=== PATIENT | male | born 1945 | race Caucasian/White ===

== ENCOUNTER 2018-12-21 10:59 | Inpatient (IN) ==
[2018-12-21] MEDS ORDERED: methylPREDNISolone SOD SUC 125 MG/2 ML VIAL IV STA (11:35)
[2018-12-21] MEDS ORDERED: LEVOFLOXACIN INJ 500 MG in PREMIX 1 EACH IV STA (11:35)
[2018-12-21] MEDS ORDERED: ALBUTEROL/IPRATROPIUM 3 ML NEB RESP TX STA (11:35)
[2018-12-21 11:57] LABS: Basophils % 0.2 % (0.0-0.8); Eosinophils # 0.1 10*3/uL (0.0-0.87); Eosinophils % 0.7 % (0.00-10.9); Hematocrit 39.7 VOL% (42.0-52.0); Immature Granulocytes % 0.3 %; Immature Granulocytes Absolute 0.04 #; Lymphocytes # 2.1 10*3/uL (1.4-4.0); Lymphocytes % 17.6 % (21.2-54.2); Mean Corpuscular HGB Conc 30.2 GM/DL (32-36); Mean Corpuscular Hemoglobin 25 PG (27-34); Mean Corpuscular Volume 81.7 FL (87-102); Monocytes # 0.9 10*3/uL (0.11-0.8); Monocytes % 7.3 % (1.7-12.7); Neutrophils # 8.9 10*3/uL (1.4-7.4); Neutrophils % 73.9 % (38.7-73.9); Platelet Count 378 T/CUMM (130-400); Red Blood Count 4.86 MC/CUMM (3.8-5.5); Red Cell Distribution Width 16.5 % (9.3-17.3)
[2018-12-21 12:29] LABS: Albumin 3.3 G/DL (3.4-5.0); Bilirubin,Total 0.4 MG/DL (0.2-1.0); Calcium 10.6 MG/DL (8.5-10.1); Potassium 3.7 MMOL/L (3.5-5.1); Total Protein 8.9 G/DL (6.4-8.3)
[2018-12-21] MEDS ORDERED: ONDANSETRON 4 MG/2 ML VIAL IV PRN (12:51)
[2018-12-21] MEDS: SODIUM CHLORIDE 0.9% 1,000 ML IV SCH (14:54)
[2018-12-21] MEDS ORDERED: ALBUTEROL 2.5 MG/3 ML NEB RESP TX PRN (15:47)
[2018-12-21] MEDS ORDERED: LEVOFLOXACIN INJ 250 MG in PREMIX 1 EACH IV ONE (16:00)
[2018-12-21] MEDS: GABAPENTIN 600 MG TABLET PO SCH ×2 (17:14→20:24)
[2018-12-21] MEDS: ALBUTEROL/IPRATROPIUM 3 ML NEB RESP TX SCH (19:23)
[2018-12-21] MEDS: NICOTINE 21 MG/24 HR PATCH TRANSDERM PRN (20:24)
[2018-12-21] MEDS: ASPIRIN EC 325 MG TABLET PO SCH (20:24)
[2018-12-21] MEDS: DOCUSATE SODIUM 100 MG CAPSULE PO SCH (20:24)
[2018-12-21] MEDS ORDERED: CELECOXIB 100 MG CAPSULE PO SCH (21:00)
[2018-12-21] MEDS: ACETAMINOPHEN 325 MG TABLET PO PRN (22:24)
[2018-12-22] MEDS: ALBUTEROL/IPRATROPIUM 3 ML NEB RESP TX SCH ×4 (00:54→19:12)
[2018-12-22] MEDS: SODIUM CHLORIDE 0.9% 1,000 ML IV SCH ×4 (08:15→16:22)
[2018-12-22] MEDS: methylPREDNISolone SOD SUC 40 MG/1 ML VIAL IV SCH ×2 (08:16→20:41)
[2018-12-22] MEDS: PANTOPRAZOLE 40 MG TABLET PO SCH (08:17)
[2018-12-22] MEDS: DOCUSATE SODIUM 100 MG CAPSULE PO SCH ×2 (08:17→20:40)
[2018-12-22] MEDS: SIMVASTATIN 20 MG TABLET PO SCH (08:17)
[2018-12-22] MEDS: GABAPENTIN 600 MG TABLET PO SCH ×4 (08:17→20:40)
[2018-12-22] MEDS: LEVOFLOXACIN 750 MG TABLET PO SCH (08:27)
[2018-12-22] MEDS: ACETAMINOPHEN 325 MG TABLET PO PRN ×3 (09:11→20:41)
[2018-12-22] MEDS: ASPIRIN EC 325 MG TABLET PO SCH (20:40)
[2018-12-22] MEDS: NICOTINE 21 MG/24 HR PATCH TRANSDERM PRN (20:41)
[2018-12-23] MEDS: SODIUM CHLORIDE 0.9% 1,000 ML IV SCH (01:00)
[2018-12-23] MEDS: ALBUTEROL/IPRATROPIUM 3 ML NEB RESP TX SCH ×2 (01:40→07:10)
[2018-12-23 05:45] LABS: Calcium 9.3 MG/DL (8.5-10.1); Osmolality,Calculated 279.4 MOS/KG (273-304); Potassium 3.9 MMOL/L (3.5-5.1)
[2018-12-23 07:29] VITALS: BP 116/78
[2018-12-23] MEDS: methylPREDNISolone SOD SUC 40 MG/1 ML VIAL IV SCH (09:32)
[2018-12-23] MEDS: DOCUSATE SODIUM 100 MG CAPSULE PO SCH (09:33)
[2018-12-23] MEDS: GABAPENTIN 600 MG TABLET PO SCH (09:33)
[2018-12-23] MEDS: SIMVASTATIN 20 MG TABLET PO SCH (09:33)
[2018-12-23] MEDS: PANTOPRAZOLE 40 MG TABLET PO SCH (09:33)
[2018-12-23] MEDS: LEVOFLOXACIN 750 MG TABLET PO SCH (09:33)
== END 2018-12-23 10:20 | disposition home or self-care (01) | DRG 190 ==
LOC: N.ED 10:59 → N.EDINP 12:49 → N.2E 14:28
PROVIDERS: ADMIT Family Medicine; ATTEND Family Medicine

== ENCOUNTER 2019-01-04 04:16 | Inpatient (IN) ==
[2019-01-04] MEDS ORDERED: methylPREDNISolone SOD SUC 125 MG/2 ML VIAL IV STA (04:44)
[2019-01-04] MEDS ORDERED: ALBUTEROL/IPRATROPIUM 3 ML NEB RESP TX STA (04:45)
[2019-01-04 04:54] LABS: Basophils % 0.2 % (0.0-0.8); Eosinophils # 0.1 10*3/uL (0.0-0.87); Eosinophils % 0.5 % (0.00-10.9); Hematocrit 41.5 VOL% (42.0-52.0); Hemoglobin 12.6 GM/DL (14.0-18.0); Immature Granulocytes % 0.7 %; Immature Granulocytes Absolute 0.14 #; Lymphocytes # 2.2 10*3/uL (1.4-4.0); Lymphocytes % 11.3 % (21.2-54.2); Mean Corpuscular HGB Conc 30.4 GM/DL (32-36); Mean Corpuscular Hemoglobin 25 PG (27-34); Mean Corpuscular Volume 81.5 FL (87-102); Mean Platelet Volume 9.9 FL (9.6-12.0); Monocytes # 1.7 10*3/uL (0.11-0.8); Monocytes % 8.5 % (1.7-12.7); Neutrophils # 15.7 10*3/uL (1.4-7.4); Neutrophils % 78.8 % (38.7-73.9); Platelet Count 345 T/CUMM (130-400); Red Blood Count 5.09 MC/CUMM (3.8-5.5); Red Cell Distribution Width 17.7 % (9.3-17.3); White Blood Count 19.9 T/CUMM (4-12)
[2019-01-04 05:04] LABS: Albumin 3.1 G/DL (3.4-5.0); Bilirubin,Total 0.4 MG/DL (0.2-1.0); Calcium 9.6 MG/DL (8.5-10.1); Potassium 3.8 MMOL/L (3.5-5.1); Total Protein 7.8 G/DL (6.4-8.3)
[2019-01-04] MEDS ORDERED: CEFEPIME 2,000 MG in SODIUM CHLORIDE 0.9% 100 ML IV STA (05:20)
[2019-01-04] MEDS ORDERED: VANCOMYCIN INJ 1,000 MG in SODIUM CHLORIDE 0.9% 250 ML IV STA (05:20)
[2019-01-04] MEDS ORDERED: ONDANSETRON 4 MG/2 ML VIAL IV PRN (05:45)
[2019-01-04] MEDS: DEXTROSE 5% NACL 0.9% 1,000 ML IV SCH ×3 (07:19→23:08)
[2019-01-04] MEDS: PANTOPRAZOLE 40 MG VIAL IV SCH (08:37)
[2019-01-04] MEDS: MONTELUKAST 10 MG TABLET PO SCH ×2 (09:41→21:33)
[2019-01-04] MEDS: methylPREDNISolone SOD SUC 40 MG/1 ML VIAL IV SCH ×2 (09:41→17:11)
[2019-01-04 09:57] LABS: % Iron Saturation 8.4 % (18-50)
[2019-01-04 10:38] LABS: Folate 14.2 NG/ML (5.4-24.0)
[2019-01-04 10:54] LABS: Apearance,Urine CLEAR (Clear); Bilirubin,Urine Negative (Negative); Blood, Urine Negative (Negative); Glucose,Urine (UA) Negative (Negative); Ketones,Urine Negative (Negative); Mucus,Urine Occasional /LPF (Occasional); Nitrite,Urine Negative (Negative); Protein,Urine Negative; RBC,Urine <1 /HPF (0-4); Urine Color Colorless (Yellow); Urine Specific Gravity 1.004 (1.001-1.035); Urine Urobilinogen < 2.0 EU/DL (0.2-1.0)
[2019-01-04] MEDS: CEFEPIME 2,000 MG in SODIUM CHLORIDE 0.9% 100 ML IV SCH ×2 (14:10→21:34)
[2019-01-04] MEDS: MORPHINE 4 MG/1 ML VIAL IV PRN ×2 (15:05→23:45)
[2019-01-05] MEDS: methylPREDNISolone SOD SUC 40 MG/1 ML VIAL IV SCH ×3 (03:36→16:51)
[2019-01-05 05:01] LABS: Basophils % 0.1 % (0.0-0.8); Hematocrit 37.6 VOL% (42.0-52.0); Hemoglobin 11.5 GM/DL (14.0-18.0); Immature Granulocytes % 0.5 %; Immature Granulocytes Absolute 0.07 #; Lymphocytes # 1.4 10*3/uL (1.4-4.0); Lymphocytes % 10.1 % (21.2-54.2); Mean Corpuscular HGB Conc 30.6 GM/DL (32-36); Mean Corpuscular Hemoglobin 25 PG (27-34); Mean Corpuscular Volume 81.2 FL (87-102); Mean Platelet Volume 10.2 FL (9.6-12.0); Monocytes # 0.9 10*3/uL (0.11-0.8); Monocytes % 6.2 % (1.7-12.7); Neutrophils # 11.6 10*3/uL (1.4-7.4); Neutrophils % 83.1 % (38.7-73.9); Platelet Count 331 T/CUMM (130-400); Red Blood Count 4.63 MC/CUMM (3.8-5.5); Red Cell Distribution Width 17.3 % (9.3-17.3)
[2019-01-05 05:15] LABS: Calcium 9.5 MG/DL (8.5-10.1); Osmolality,Calculated 270.1 MOS/KG (273-304); Potassium 4.3 MMOL/L (3.5-5.1)
[2019-01-05] MEDS: CEFEPIME 2,000 MG in SODIUM CHLORIDE 0.9% 100 ML IV SCH ×3 (06:20→22:00)
[2019-01-05] MEDS: DEXTROSE 5% NACL 0.9% 1,000 ML IV SCH ×3 (07:51→23:42)
[2019-01-05] MEDS: MONTELUKAST 10 MG TABLET PO SCH ×2 (09:19→21:51)
[2019-01-05] MEDS: PANTOPRAZOLE 40 MG VIAL IV SCH (09:20)
[2019-01-05] MEDS: MORPHINE 4 MG/1 ML VIAL IV PRN ×2 (11:14→14:28)
[2019-01-05] MEDS: FLUCONAZOLE INJ 100 MG in IV BAG 1 EACH IV SCH (12:22)
[2019-01-05] MEDS: GABAPENTIN 600 MG TABLET PO SCH ×2 (16:51→21:51)
[2019-01-05] MEDS: ASPIRIN EC 325 MG TABLET PO SCH (21:51)
[2019-01-06] MEDS: methylPREDNISolone SOD SUC 40 MG/1 ML VIAL IV SCH ×3 (02:09→17:34)
[2019-01-06 04:59] LABS: Basophils % 0.1 % (0.0-0.8); Eosinophils % 0.1 % (0.00-10.9); Hematocrit 36.3 VOL% (42.0-52.0); Hemoglobin 11.2 GM/DL (14.0-18.0); Immature Granulocytes % 0.8 %; Immature Granulocytes Absolute 0.11 #; Lymphocytes # 1.4 10*3/uL (1.4-4.0); Lymphocytes % 9.9 % (21.2-54.2); Mean Corpuscular HGB Conc 30.9 GM/DL (32-36); Mean Corpuscular Hemoglobin 25 PG (27-34); Mean Corpuscular Volume 80.7 FL (87-102); Mean Platelet Volume 10.3 FL (9.6-12.0); Monocytes # 0.9 10*3/uL (0.11-0.8); Monocytes % 6.2 % (1.7-12.7); Neutrophils # 11.5 10*3/uL (1.4-7.4); Neutrophils % 82.9 % (38.7-73.9); Platelet Count 325 T/CUMM (130-400); Red Cell Distribution Width 17.2 % (9.3-17.3); White Blood Count 13.8 T/CUMM (4-12)
[2019-01-06 05:14] LABS: Calcium 9.5 MG/DL (8.5-10.1); Osmolality,Calculated 270.1 MOS/KG (273-304); Potassium 4.1 MMOL/L (3.5-5.1)
[2019-01-06] MEDS: CEFEPIME 2,000 MG in SODIUM CHLORIDE 0.9% 100 ML IV SCH ×3 (06:40→22:06)
[2019-01-06] MEDS: MONTELUKAST 10 MG TABLET PO SCH ×2 (09:40→20:56)
[2019-01-06] MEDS: GABAPENTIN 600 MG TABLET PO SCH ×4 (09:40→20:56)
[2019-01-06] MEDS: PANTOPRAZOLE 40 MG VIAL IV SCH (09:40)
[2019-01-06] MEDS: DEXTROSE 5% NACL 0.9% 1,000 ML IV SCH (10:38)
[2019-01-06] MEDS: FLUCONAZOLE INJ 100 MG in IV BAG 1 EACH IV SCH (12:37)
[2019-01-06] MEDS: ASPIRIN EC 325 MG TABLET PO SCH (20:56)
[2019-01-07] MEDS: methylPREDNISolone SOD SUC 40 MG/1 ML VIAL IV SCH ×3 (01:30→17:25)
[2019-01-07] MEDS: CEFEPIME 2,000 MG in SODIUM CHLORIDE 0.9% 100 ML IV SCH ×3 (05:31→21:01)
[2019-01-07] MEDS: MORPHINE 4 MG/1 ML VIAL IV PRN (08:13)
[2019-01-07] MEDS: MONTELUKAST 10 MG TABLET PO SCH ×2 (09:11→20:38)
[2019-01-07] MEDS: PANTOPRAZOLE 40 MG VIAL IV SCH (09:11)
[2019-01-07] MEDS: GABAPENTIN 600 MG TABLET PO SCH ×4 (09:12→20:38)
[2019-01-07] MEDS ORDERED: PHENOL 1.4% THROAT SPRAY 177 ML BOTTLE PO PRN (11:20)
[2019-01-07] MEDS: NICOTINE 14 MG/24 HR PATCH TRANSDERM SCH (11:53)
[2019-01-07] MEDS: FLUCONAZOLE INJ 100 MG in IV BAG 1 EACH IV SCH (11:54)
[2019-01-07] MEDS ORDERED: FUROSEMIDE 20 MG/2 ML VIAL IV ONE (14:47)
[2019-01-07] MEDS: ASPIRIN EC 325 MG TABLET PO SCH (20:37)
[2019-01-08] MEDS: methylPREDNISolone SOD SUC 40 MG/1 ML VIAL IV SCH ×3 (00:49→17:35)
[2019-01-08] MEDS: CEFEPIME 2,000 MG in SODIUM CHLORIDE 0.9% 100 ML IV SCH ×3 (05:01→21:59)
[2019-01-08 05:52] LABS: Basophils % 0.1 % (0.0-0.8); Hematocrit 38.2 VOL% (42.0-52.0); Hemoglobin 11.9 GM/DL (14.0-18.0); Immature Granulocytes % 0.6 %; Immature Granulocytes Absolute 0.08 #; Lymphocytes # 0.8 10*3/uL (1.4-4.0); Lymphocytes % 6.2 % (21.2-54.2); Mean Corpuscular HGB Conc 31.2 GM/DL (32-36); Mean Corpuscular Hemoglobin 25 PG (27-34); Mean Corpuscular Volume 79.7 FL (87-102); Mean Platelet Volume 10.7 FL (9.6-12.0); Monocytes # 0.7 10*3/uL (0.11-0.8); Monocytes % 5.2 % (1.7-12.7); Neutrophils # 11.1 10*3/uL (1.4-7.4); Neutrophils % 87.9 % (38.7-73.9); Platelet Count 324 T/CUMM (130-400); Red Blood Count 4.79 MC/CUMM (3.8-5.5); Red Cell Distribution Width 17.2 % (9.3-17.3); White Blood Count 12.6 T/CUMM (4-12)
[2019-01-08 06:25] LABS: Calcium 9.1 MG/DL (8.5-10.1); Osmolality,Calculated 272.4 MOS/KG (273-304)
[2019-01-08] MEDS: MONTELUKAST 10 MG TABLET PO SCH ×2 (09:50→20:18)
[2019-01-08] MEDS: FUROSEMIDE 20 MG/2 ML VIAL IV SCH (09:51)
[2019-01-08] MEDS: GABAPENTIN 600 MG TABLET PO SCH ×4 (09:51→20:18)
[2019-01-08] MEDS: NICOTINE 14 MG/24 HR PATCH TRANSDERM SCH (09:53)
[2019-01-08] MEDS: PANTOPRAZOLE 40 MG VIAL IV SCH (10:28)
[2019-01-08] MEDS ORDERED: MIDAZOLAM 2 MG/2 ML VIAL ONE (13:01)
[2019-01-08] MEDS ORDERED: MIDAZOLAM 2 MG/2 ML VIAL IV ONE (13:05)
[2019-01-08] MEDS ORDERED: LIDOCAINE 1% 20 ML VIAL MISC INJ ONE (13:10)
[2019-01-08] MEDS: FLUCONAZOLE INJ 100 MG in IV BAG 1 EACH IV SCH (14:15)
[2019-01-08] MEDS: FERROUS SULFATE 325 MG TABLET PO SCH (15:25)
[2019-01-08] MEDS: METOPROLOL TARTRATE 25 MG TABLET PO SCH ×2 (15:25→20:18)
[2019-01-08] MEDS: MORPHINE 4 MG/1 ML VIAL IV PRN (19:05)
[2019-01-08] MEDS: ALBUTEROL/IPRATROPIUM 3 ML NEB RESP TX SCH (19:27)
[2019-01-08] MEDS: BUDESONIDE 0.25 MG/2 ML NEB RESP TX SCH (19:27)
[2019-01-08] MEDS: ASPIRIN EC 325 MG TABLET PO SCH (20:18)
[2019-01-08] MEDS: CELECOXIB 100 MG CAPSULE PO SCH (20:18)
[2019-01-09] MEDS: ALBUTEROL/IPRATROPIUM 3 ML NEB RESP TX SCH ×4 (00:28→19:39)
[2019-01-09] MEDS: methylPREDNISolone SOD SUC 40 MG/1 ML VIAL IV SCH ×3 (01:07→21:33)
[2019-01-09 05:39] LABS: Basophils % 0.1 % (0.0-0.8); Hematocrit 38.6 VOL% (42.0-52.0); Hemoglobin 11.9 GM/DL (14.0-18.0); Immature Granulocytes % 0.8 %; Immature Granulocytes Absolute 0.14 #; Lymphocytes # 0.4 10*3/uL (1.4-4.0); Lymphocytes % 2.3 % (21.2-54.2); Mean Corpuscular HGB Conc 30.8 GM/DL (32-36); Mean Corpuscular Hemoglobin 25 PG (27-34); Mean Corpuscular Volume 80.6 FL (87-102); Mean Platelet Volume 10.4 FL (9.6-12.0); Neutrophils # 15.7 10*3/uL (1.4-7.4); Neutrophils % 90.8 % (38.7-73.9); Platelet Count 301 T/CUMM (130-400); Red Blood Count 4.79 MC/CUMM (3.8-5.5); Red Cell Distribution Width 17.2 % (9.3-17.3); White Blood Count 17.3 T/CUMM (4-12)
[2019-01-09 05:59] LABS: Hypochromasia 1+; Lymphocytes 2 % (20-55); Platelet Estimate Adequate; Segmented Neutrophils 88 % (50-85); Total Cells Counted 100
[2019-01-09 06:06] LABS: Calcium 8.9 MG/DL (8.5-10.1); Osmolality,Calculated 273.4 MOS/KG (273-304); Potassium 4.1 MMOL/L (3.5-5.1)
[2019-01-09] MEDS: CEFEPIME 2,000 MG in SODIUM CHLORIDE 0.9% 100 ML IV SCH ×3 (06:16→22:04)
[2019-01-09] MEDS: BUDESONIDE 0.25 MG/2 ML NEB RESP TX SCH ×2 (07:53→19:39)
[2019-01-09] MEDS: GABAPENTIN 600 MG TABLET PO SCH ×4 (08:32→21:33)
[2019-01-09] MEDS: MONTELUKAST 10 MG TABLET PO SCH ×2 (08:33→21:33)
[2019-01-09] MEDS: METOPROLOL TARTRATE 25 MG TABLET PO SCH ×2 (08:33→21:33)
[2019-01-09] MEDS: NICOTINE 14 MG/24 HR PATCH TRANSDERM SCH (08:33)
[2019-01-09] MEDS: FERROUS SULFATE 325 MG TABLET PO SCH (08:33)
[2019-01-09] MEDS: PANTOPRAZOLE 40 MG VIAL IV SCH (08:33)
[2019-01-09] MEDS: CELECOXIB 100 MG CAPSULE PO SCH ×2 (08:35→21:33)
[2019-01-09] MEDS: FUROSEMIDE 20 MG/2 ML VIAL IV SCH (08:39)
[2019-01-09] MEDS: FLUCONAZOLE INJ 100 MG in IV BAG 1 EACH IV SCH (12:41)
[2019-01-09] MEDS: ASPIRIN EC 325 MG TABLET PO SCH (21:33)
[2019-01-10] MEDS: ALBUTEROL/IPRATROPIUM 3 ML NEB RESP TX SCH ×4 (00:29→20:25)
[2019-01-10 05:32] LABS: Basophils % 0.1 % (0.0-0.8); Hematocrit 39.5 VOL% (42.0-52.0); Hemoglobin 11.9 GM/DL (14.0-18.0); Immature Granulocytes Absolute 0.16 #; Lymphocytes # 0.5 10*3/uL (1.4-4.0); Mean Corpuscular HGB Conc 30.1 GM/DL (32-36); Mean Corpuscular Hemoglobin 25 PG (27-34); Mean Corpuscular Volume 82.3 FL (87-102); Mean Platelet Volume 10.2 FL (9.6-12.0); Monocytes # 0.9 10*3/uL (0.11-0.8); Monocytes % 5.5 % (1.7-12.7); Neutrophils # 14.6 10*3/uL (1.4-7.4); Neutrophils % 90.4 % (38.7-73.9); Platelet Count 285 T/CUMM (130-400); Red Cell Distribution Width 17.2 % (9.3-17.3); White Blood Count 16.2 T/CUMM (4-12)
[2019-01-10 05:47] LABS: Albumin 2.9 G/DL (3.4-5.0); Bilirubin,Total 1.3 MG/DL (0.2-1.0); Calcium 8.6 MG/DL (8.5-10.1); Osmolality,Calculated 272.4 MOS/KG (273-304); Potassium 3.9 MMOL/L (3.5-5.1)
[2019-01-10 06:03] LABS: Lymphocytes 3 % (20-55); Platelet Estimate Normal; Segmented Neutrophils 95 % (50-85); Total Cells Counted 100
[2019-01-10 06:04] LABS: Polychromasia Few
[2019-01-10] MEDS: CEFEPIME 2,000 MG in SODIUM CHLORIDE 0.9% 100 ML IV SCH ×3 (06:12→21:44)
[2019-01-10] MEDS: FERROUS SULFATE 325 MG TABLET PO SCH (08:30)
[2019-01-10] MEDS: GABAPENTIN 600 MG TABLET PO SCH ×4 (08:30→21:44)
[2019-01-10] MEDS: MONTELUKAST 10 MG TABLET PO SCH ×2 (08:31→21:44)
[2019-01-10] MEDS: methylPREDNISolone SOD SUC 40 MG/1 ML VIAL IV SCH ×2 (08:31→21:42)
[2019-01-10] MEDS: CELECOXIB 100 MG CAPSULE PO SCH ×2 (08:31→21:43)
[2019-01-10] MEDS: PANTOPRAZOLE 40 MG VIAL IV SCH (08:33)
[2019-01-10] MEDS: NICOTINE 14 MG/24 HR PATCH TRANSDERM SCH (08:34)
[2019-01-10] MEDS: FUROSEMIDE 20 MG/2 ML VIAL IV SCH (08:37)
[2019-01-10] MEDS: BUDESONIDE 0.25 MG/2 ML NEB RESP TX SCH ×2 (08:40→20:25)
[2019-01-10] MEDS: METOPROLOL TARTRATE 25 MG TABLET PO SCH ×2 (10:29→21:43)
[2019-01-10] MEDS: FLUCONAZOLE INJ 100 MG in IV BAG 1 EACH IV SCH (11:54)
[2019-01-10] MEDS: ASPIRIN EC 325 MG TABLET PO SCH (21:43)
[2019-01-11] MEDS: ALBUTEROL/IPRATROPIUM 3 ML NEB RESP TX SCH ×4 (00:29→20:08)
[2019-01-11] MEDS: CEFEPIME 2,000 MG in SODIUM CHLORIDE 0.9% 100 ML IV SCH ×3 (05:04→21:53)
[2019-01-11 05:29] LABS: Hematocrit 37.5 VOL% (42.0-52.0); Hemoglobin 11.4 GM/DL (14.0-18.0); Immature Granulocytes % 0.7 %; Immature Granulocytes Absolute 0.11 #; Lymphocytes # 0.5 10*3/uL (1.4-4.0); Lymphocytes % 3.1 % (21.2-54.2); Mean Corpuscular HGB Conc 30.4 GM/DL (32-36); Mean Corpuscular Hemoglobin 25 PG (27-34); Mean Platelet Volume 10.8 FL (9.6-12.0); Monocytes # 0.8 10*3/uL (0.11-0.8); Monocytes % 5.1 % (1.7-12.7); Neutrophils # 14.1 10*3/uL (1.4-7.4); Neutrophils % 91.1 % (38.7-73.9); Platelet Count 286 T/CUMM (130-400); Red Blood Count 4.63 MC/CUMM (3.8-5.5); Red Cell Distribution Width 17.5 % (9.3-17.3); White Blood Count 15.5 T/CUMM (4-12)
[2019-01-11 05:44] LABS: Albumin 2.9 G/DL (3.4-5.0); Calcium 8.5 MG/DL (8.5-10.1); Osmolality,Calculated 274.4 MOS/KG (273-304); Potassium 3.8 MMOL/L (3.5-5.1); Total Protein 6.6 G/DL (6.4-8.3)
[2019-01-11 05:53] LABS: Hypochromasia 1+; Lymphocytes 2 % (20-55); Platelet Estimate Adequate; Segmented Neutrophils 93 % (50-85); Total Cells Counted 100
[2019-01-11] MEDS: BUDESONIDE 0.25 MG/2 ML NEB RESP TX SCH ×2 (07:04→20:10)
[2019-01-11] MEDS: MONTELUKAST 10 MG TABLET PO SCH ×2 (09:11→21:46)
[2019-01-11] MEDS: FERROUS SULFATE 325 MG TABLET PO SCH (09:11)
[2019-01-11] MEDS: GABAPENTIN 600 MG TABLET PO SCH ×4 (09:11→21:46)
[2019-01-11] MEDS: METOPROLOL TARTRATE 25 MG TABLET PO SCH ×2 (09:11→21:48)
[2019-01-11] MEDS: FUROSEMIDE 20 MG/2 ML VIAL IV SCH (09:12)
[2019-01-11] MEDS: CELECOXIB 100 MG CAPSULE PO SCH ×2 (09:12→21:46)
[2019-01-11] MEDS: methylPREDNISolone SOD SUC 40 MG/1 ML VIAL IV SCH ×2 (09:13→21:49)
[2019-01-11] MEDS: NICOTINE 14 MG/24 HR PATCH TRANSDERM SCH (09:14)
[2019-01-11] MEDS: PANTOPRAZOLE 40 MG VIAL IV SCH (09:16)
[2019-01-11] MEDS: FLUCONAZOLE INJ 100 MG in IV BAG 1 EACH IV SCH (12:55)
[2019-01-11] MEDS: ASPIRIN EC 325 MG TABLET PO SCH (21:48)
[2019-01-12] MEDS: ALBUTEROL/IPRATROPIUM 3 ML NEB RESP TX SCH ×4 (00:18→19:45)
[2019-01-12] MEDS: MORPHINE 4 MG/1 ML VIAL IV PRN ×2 (01:16→20:53)
[2019-01-12] MEDS: BUDESONIDE 0.25 MG/2 ML NEB RESP TX SCH ×2 (08:05→19:45)
[2019-01-12] MEDS: MONTELUKAST 10 MG TABLET PO SCH ×2 (09:05→20:53)
[2019-01-12] MEDS: FERROUS SULFATE 325 MG TABLET PO SCH (09:05)
[2019-01-12] MEDS: CELECOXIB 100 MG CAPSULE PO SCH ×2 (09:05→20:53)
[2019-01-12] MEDS: GABAPENTIN 600 MG TABLET PO SCH ×4 (09:05→20:53)
[2019-01-12] MEDS: METOPROLOL TARTRATE 25 MG TABLET PO SCH ×2 (09:05→20:53)
[2019-01-12] MEDS: NICOTINE 14 MG/24 HR PATCH TRANSDERM SCH (09:06)
[2019-01-12] MEDS: PANTOPRAZOLE 40 MG VIAL IV SCH (10:13)
[2019-01-12] MEDS: methylPREDNISolone SOD SUC 40 MG/1 ML VIAL IV SCH ×2 (10:13→20:55)
[2019-01-12] MEDS ORDERED: CEFEPIME 2,000 MG in SYRINGE 1 EACH IV SCH (11:00)
[2019-01-12] MEDS: FLUCONAZOLE INJ 100 MG in IV BAG 1 EACH IV SCH (12:46)
[2019-01-12] MEDS: cefTAZidime 1,000 MG in SYRINGE 1 EACH IV SCH ×2 (15:17→22:32)
[2019-01-12] MEDS: ASPIRIN EC 325 MG TABLET PO SCH (20:53)
[2019-01-13] MEDS: ALBUTEROL/IPRATROPIUM 3 ML NEB RESP TX SCH ×4 (00:45→19:30)
[2019-01-13] MEDS: cefTAZidime 1,000 MG in SYRINGE 1 EACH IV SCH ×3 (06:15→23:16)
[2019-01-13] MEDS: BUDESONIDE 0.25 MG/2 ML NEB RESP TX SCH ×2 (07:01→19:32)
[2019-01-13 08:10] LABS: Basophils % 0.1 % (0.0-0.8); Eosinophils % 0.1 % (0.00-10.9); Hematocrit 39.7 VOL% (42.0-52.0); Hemoglobin 12.2 GM/DL (14.0-18.0); Immature Granulocytes % 0.6 %; Immature Granulocytes Absolute 0.11 #; Lymphocytes # 1.4 10*3/uL (1.4-4.0); Lymphocytes % 7.8 % (21.2-54.2); Mean Corpuscular HGB Conc 30.7 GM/DL (32-36); Mean Corpuscular Hemoglobin 25 PG (27-34); Mean Corpuscular Volume 80.9 FL (87-102); Monocytes # 1.4 10*3/uL (0.11-0.8); Monocytes % 7.9 % (1.7-12.7); Neutrophils # 14.7 10*3/uL (1.4-7.4); Neutrophils % 83.5 % (38.7-73.9); Platelet Count 302 T/CUMM (130-400); Red Blood Count 4.91 MC/CUMM (3.8-5.5); Red Cell Distribution Width 17.9 % (9.3-17.3); White Blood Count 17.6 T/CUMM (4-12)
[2019-01-13] MEDS: GABAPENTIN 600 MG TABLET PO SCH ×4 (08:31→20:55)
[2019-01-13] MEDS: MONTELUKAST 10 MG TABLET PO SCH ×2 (08:31→20:55)
[2019-01-13] MEDS: FERROUS SULFATE 325 MG TABLET PO SCH (08:32)
[2019-01-13] MEDS: methylPREDNISolone SOD SUC 40 MG/1 ML VIAL IV SCH ×2 (08:32→20:55)
[2019-01-13] MEDS: PANTOPRAZOLE 40 MG VIAL IV SCH (08:32)
[2019-01-13] MEDS: NICOTINE 14 MG/24 HR PATCH TRANSDERM SCH (08:32)
[2019-01-13] MEDS: METOPROLOL TARTRATE 25 MG TABLET PO SCH ×2 (08:32→20:56)
[2019-01-13] MEDS: CELECOXIB 100 MG CAPSULE PO SCH ×2 (08:34→20:56)
[2019-01-13 08:37] LABS: Calcium 9.2 MG/DL (8.5-10.1); Osmolality,Calculated 265.7 MOS/KG (273-304); Potassium 4.6 MMOL/L (3.5-5.1)
[2019-01-13] MEDS: LEVOFLOXACIN INJ 500 MG in PREMIX 1 EACH IV SCH (10:37)
[2019-01-13] MEDS: FLUCONAZOLE INJ 100 MG in IV BAG 1 EACH IV SCH (12:25)
[2019-01-13] MEDS: ASPIRIN EC 325 MG TABLET PO SCH (20:56)
[2019-01-14] MEDS: ALBUTEROL/IPRATROPIUM 3 ML NEB RESP TX SCH ×4 (00:50→19:09)
[2019-01-14 04:43] LABS: Basophils % 0.1 % (0.0-0.8); Hematocrit 38.2 VOL% (42.0-52.0); Hemoglobin 11.8 GM/DL (14.0-18.0); Immature Granulocytes % 0.9 %; Immature Granulocytes Absolute 0.16 #; Lymphocytes # 0.6 10*3/uL (1.4-4.0); Lymphocytes % 3.5 % (21.2-54.2); Mean Corpuscular HGB Conc 30.9 GM/DL (32-36); Mean Corpuscular Hemoglobin 25 PG (27-34); Mean Corpuscular Volume 80.4 FL (87-102); Mean Platelet Volume 10.8 FL (9.6-12.0); Monocytes # 0.9 10*3/uL (0.11-0.8); Monocytes % 4.7 % (1.7-12.7); Neutrophils # 16.6 10*3/uL (1.4-7.4); Neutrophils % 90.8 % (38.7-73.9); Platelet Count 287 T/CUMM (130-400); Red Blood Count 4.75 MC/CUMM (3.8-5.5); Red Cell Distribution Width 18.1 % (9.3-17.3); White Blood Count 18.3 T/CUMM (4-12)
[2019-01-14 05:05] LABS: Calcium 8.9 MG/DL (8.5-10.1); Osmolality,Calculated 274.4 MOS/KG (273-304); Potassium 4.7 MMOL/L (3.5-5.1)
[2019-01-14 05:30] LABS: Anisocytosis 1+; Band Neutrophils 2 % (0-10); Lymphocytes 3 % (20-55); Macrocytosis 1+; Ovalocytes 1+; Platelet Estimate Normal; Segmented Neutrophils 90 % (50-85); Target Cells 1+; Total Cells Counted 100
[2019-01-14] MEDS: cefTAZidime 1,000 MG in SYRINGE 1 EACH IV SCH ×3 (06:20→22:57)
[2019-01-14] MEDS: BUDESONIDE 0.25 MG/2 ML NEB RESP TX SCH ×2 (07:25→19:09)
[2019-01-14] MEDS: MONTELUKAST 10 MG TABLET PO SCH ×2 (10:06→20:26)
[2019-01-14] MEDS: GABAPENTIN 600 MG TABLET PO SCH ×4 (10:06→20:26)
[2019-01-14] MEDS: METOPROLOL TARTRATE 25 MG TABLET PO SCH ×2 (10:07→20:26)
[2019-01-14] MEDS: FERROUS SULFATE 325 MG TABLET PO SCH (10:07)
[2019-01-14] MEDS: PANTOPRAZOLE 40 MG VIAL IV SCH (10:08)
[2019-01-14] MEDS: methylPREDNISolone SOD SUC 40 MG/1 ML VIAL IV SCH ×2 (10:10→20:27)
[2019-01-14] MEDS: NICOTINE 14 MG/24 HR PATCH TRANSDERM SCH (10:12)
[2019-01-14] MEDS: LEVOFLOXACIN INJ 500 MG in PREMIX 1 EACH IV SCH (10:17)
[2019-01-14] MEDS: CELECOXIB 100 MG CAPSULE PO SCH ×2 (10:22→20:27)
[2019-01-14] MEDS: FLUCONAZOLE INJ 100 MG in IV BAG 1 EACH IV SCH (12:58)
[2019-01-14] MEDS: VANCOMYCIN INJ 1,000 MG in SODIUM CHLORIDE 0.9% 250 ML IV SCH (18:34)
[2019-01-14] MEDS: ASPIRIN EC 325 MG TABLET PO SCH (20:26)
[2019-01-15] MEDS: ALBUTEROL/IPRATROPIUM 3 ML NEB RESP TX SCH ×4 (00:45→19:45)
[2019-01-15] MEDS: VANCOMYCIN INJ 1,000 MG in SODIUM CHLORIDE 0.9% 250 ML IV SCH ×2 (04:46→18:18)
[2019-01-15 05:50] LABS: Basophils % 0.1 % (0.0-0.8); Hematocrit 38.2 VOL% (42.0-52.0); Hemoglobin 11.7 GM/DL (14.0-18.0); Immature Granulocytes % 1.2 %; Immature Granulocytes Absolute 0.23 #; Lymphocytes # 0.8 10*3/uL (1.4-4.0); Mean Corpuscular HGB Conc 30.6 GM/DL (32-36); Mean Corpuscular Hemoglobin 25 PG (27-34); Mean Corpuscular Volume 81.3 FL (87-102); Mean Platelet Volume 10.6 FL (9.6-12.0); Monocytes # 1.2 10*3/uL (0.11-0.8); Monocytes % 6.2 % (1.7-12.7); Neutrophils # 17.4 10*3/uL (1.4-7.4); Neutrophils % 88.5 % (38.7-73.9); Platelet Count 284 T/CUMM (130-400); White Blood Count 19.7 T/CUMM (4-12)
[2019-01-15 06:02] LABS: Calcium 8.4 MG/DL (8.5-10.1); Osmolality,Calculated 269.4 MOS/KG (273-304); Potassium 4.2 MMOL/L (3.5-5.1)
[2019-01-15 06:12] LABS: Band Neutrophils 1 % (0-10); Hypochromasia 1+; Lymphocytes 8 % (20-55); Microcytosis 1+; Platelet Estimate Normal; Segmented Neutrophils 87 % (50-85); Total Cells Counted 100
[2019-01-15] MEDS: cefTAZidime 1,000 MG in SYRINGE 1 EACH IV SCH ×3 (06:46→23:36)
[2019-01-15] MEDS: BUDESONIDE 0.25 MG/2 ML NEB RESP TX SCH ×2 (07:40→19:45)
[2019-01-15] MEDS: METOPROLOL TARTRATE 25 MG TABLET PO SCH ×2 (09:37→20:25)
[2019-01-15] MEDS: MONTELUKAST 10 MG TABLET PO SCH ×2 (09:38→20:24)
[2019-01-15] MEDS: GABAPENTIN 600 MG TABLET PO SCH ×4 (09:38→20:24)
[2019-01-15] MEDS: CELECOXIB 100 MG CAPSULE PO SCH ×2 (09:38→20:28)
[2019-01-15] MEDS: FERROUS SULFATE 325 MG TABLET PO SCH (09:39)
[2019-01-15] MEDS: PANTOPRAZOLE 40 MG VIAL IV SCH (09:42)
[2019-01-15] MEDS: methylPREDNISolone SOD SUC 40 MG/1 ML VIAL IV SCH ×2 (09:45→20:31)
[2019-01-15] MEDS: NICOTINE 14 MG/24 HR PATCH TRANSDERM SCH (09:47)
[2019-01-15] MEDS: LEVOFLOXACIN INJ 500 MG in PREMIX 1 EACH IV SCH (11:40)
[2019-01-15] MEDS: FLUCONAZOLE INJ 100 MG in IV BAG 1 EACH IV SCH (16:17)
[2019-01-15] MEDS: ASPIRIN EC 325 MG TABLET PO SCH (20:24)
[2019-01-16] MEDS: ALBUTEROL/IPRATROPIUM 3 ML NEB RESP TX SCH ×4 (00:17→18:40)
[2019-01-16 04:44] LABS: Basophils % 0.2 % (0.0-0.8); Hematocrit 39.5 VOL% (42.0-52.0); Immature Granulocytes Absolute 0.18 #; Lymphocytes # 0.6 10*3/uL (1.4-4.0); Lymphocytes % 3.2 % (21.2-54.2); Mean Corpuscular HGB Conc 30.4 GM/DL (32-36); Mean Corpuscular Hemoglobin 25 PG (27-34); Mean Platelet Volume 10.6 FL (9.6-12.0); Monocytes # 0.8 10*3/uL (0.11-0.8); Monocytes % 4.8 % (1.7-12.7); Neutrophils # 15.8 10*3/uL (1.4-7.4); Neutrophils % 90.8 % (38.7-73.9); Platelet Count 282 T/CUMM (130-400); Red Blood Count 4.82 MC/CUMM (3.8-5.5); Red Cell Distribution Width 18.3 % (9.3-17.3); White Blood Count 17.4 T/CUMM (4-12)
[2019-01-16] MEDS: VANCOMYCIN INJ 1,000 MG in SODIUM CHLORIDE 0.9% 250 ML IV SCH ×2 (04:44→18:08)
[2019-01-16 05:05] LABS: Calcium 8.3 MG/DL (8.5-10.1); Osmolality,Calculated 269.4 MOS/KG (273-304); Potassium 4.1 MMOL/L (3.5-5.1)
[2019-01-16 05:13] LABS: Lymphocytes 5 % (20-55); Platelet Estimate Normal; Segmented Neutrophils 92 % (50-85); Total Cells Counted 100
[2019-01-16 05:14] LABS: Hypochromasia Slight; Polychromasia Few
[2019-01-16] MEDS: cefTAZidime 1,000 MG in SYRINGE 1 EACH IV SCH ×3 (06:55→23:04)
[2019-01-16] MEDS: BUDESONIDE 0.25 MG/2 ML NEB RESP TX SCH ×2 (07:45→18:40)
[2019-01-16] MEDS: PANTOPRAZOLE 40 MG VIAL IV SCH (08:48)
[2019-01-16] MEDS: methylPREDNISolone SOD SUC 40 MG/1 ML VIAL IV SCH ×2 (08:53→21:17)
[2019-01-16] MEDS: METOPROLOL TARTRATE 25 MG TABLET PO SCH ×2 (08:56→21:15)
[2019-01-16] MEDS: MONTELUKAST 10 MG TABLET PO SCH ×2 (08:56→21:15)
[2019-01-16] MEDS: GABAPENTIN 600 MG TABLET PO SCH ×4 (08:57→21:15)
[2019-01-16] MEDS: FERROUS SULFATE 325 MG TABLET PO SCH (08:57)
[2019-01-16] MEDS: NICOTINE 14 MG/24 HR PATCH TRANSDERM SCH (09:00)
[2019-01-16] MEDS: CELECOXIB 100 MG CAPSULE PO SCH ×2 (10:06→21:15)
[2019-01-16] MEDS: FLUCONAZOLE INJ 100 MG in IV BAG 1 EACH IV SCH (14:32)
[2019-01-16] MEDS: ASPIRIN EC 325 MG TABLET PO SCH (21:16)
[2019-01-17] MEDS: ALBUTEROL/IPRATROPIUM 3 ML NEB RESP TX SCH ×4 (00:20→19:12)
[2019-01-17] MEDS ORDERED: VANCOMYCIN INJ 1,000 MG in SODIUM CHLORIDE 0.9% 250 ML IV SCH (02:00)
[2019-01-17 05:00] LABS: Basophils % 0.2 % (0.0-0.8); Hematocrit 36.3 VOL% (42.0-52.0); Hemoglobin 11.1 GM/DL (14.0-18.0); Immature Granulocytes % 1.2 %; Lymphocytes # 0.7 10*3/uL (1.4-4.0); Lymphocytes % 4.3 % (21.2-54.2); Mean Corpuscular HGB Conc 30.6 GM/DL (32-36); Mean Corpuscular Hemoglobin 25 PG (27-34); Mean Corpuscular Volume 81.4 FL (87-102); Mean Platelet Volume 10.3 FL (9.6-12.0); Monocytes # 0.9 10*3/uL (0.11-0.8); Monocytes % 5.2 % (1.7-12.7); Neutrophils # 14.7 10*3/uL (1.4-7.4); Neutrophils % 89.1 % (38.7-73.9); Platelet Count 268 T/CUMM (130-400); Red Blood Count 4.46 MC/CUMM (3.8-5.5); Red Cell Distribution Width 18.2 % (9.3-17.3); White Blood Count 16.5 T/CUMM (4-12)
[2019-01-17 05:24] LABS: Calcium 8.2 MG/DL (8.5-10.1); Osmolality,Calculated 270.4 MOS/KG (273-304); Potassium 4.4 MMOL/L (3.5-5.1)
[2019-01-17 05:29] LABS: Band Neutrophils 4 % (0-10); Lymphocytes 6 % (20-55); Segmented Neutrophils 86 % (50-85); Total Cells Counted 100
[2019-01-17 05:30] LABS: Platelet Estimate Normal
[2019-01-17 05:31] LABS: Anisocytosis 1+; Macrocytosis 1+; Polychromasia Few
[2019-01-17] MEDS: cefTAZidime 1,000 MG in SYRINGE 1 EACH IV SCH ×3 (06:14→22:26)
[2019-01-17] MEDS: BUDESONIDE 0.25 MG/2 ML NEB RESP TX SCH ×2 (07:04→19:12)
[2019-01-17] MEDS: PANTOPRAZOLE 40 MG VIAL IV SCH (09:06)
[2019-01-17] MEDS: methylPREDNISolone SOD SUC 40 MG/1 ML VIAL IV SCH ×2 (09:10→21:29)
[2019-01-17] MEDS: METOPROLOL TARTRATE 25 MG TABLET PO SCH ×2 (09:12→21:28)
[2019-01-17] MEDS: FERROUS SULFATE 325 MG TABLET PO SCH (09:13)
[2019-01-17] MEDS: CELECOXIB 100 MG CAPSULE PO SCH ×2 (09:13→21:28)
[2019-01-17] MEDS: MONTELUKAST 10 MG TABLET PO SCH ×2 (09:13→21:28)
[2019-01-17] MEDS: GABAPENTIN 600 MG TABLET PO SCH ×4 (09:13→21:28)
[2019-01-17] MEDS: NICOTINE 14 MG/24 HR PATCH TRANSDERM SCH (09:47)
[2019-01-17] MEDS: FLUCONAZOLE INJ 100 MG in IV BAG 1 EACH IV SCH (12:42)
[2019-01-17] MEDS: VANCOMYCIN INJ 1,250 MG in SODIUM CHLORIDE 0.9% 250 ML IV SCH (16:57)
[2019-01-17] MEDS ORDERED: MORPHINE 4 MG/1 ML VIAL IV PRN (21:15)
[2019-01-17] MEDS: ASPIRIN EC 325 MG TABLET PO SCH (21:27)
[2019-01-18] MEDS: ALBUTEROL/IPRATROPIUM 3 ML NEB RESP TX SCH ×4 (00:29→19:47)
[2019-01-18] MEDS: VANCOMYCIN INJ 1,250 MG in SODIUM CHLORIDE 0.9% 250 ML IV SCH ×2 (02:52→15:02)
[2019-01-18 05:06] LABS: Basophils % 0.2 % (0.0-0.8); Hemoglobin 11.5 GM/DL (14.0-18.0); Immature Granulocytes % 1.3 %; Immature Granulocytes Absolute 0.21 #; Lymphocytes # 0.7 10*3/uL (1.4-4.0); Lymphocytes % 4.6 % (21.2-54.2); Mean Corpuscular HGB Conc 31.1 GM/DL (32-36); Mean Corpuscular Hemoglobin 25 PG (27-34); Mean Corpuscular Volume 80.4 FL (87-102); Mean Platelet Volume 10.5 FL (9.6-12.0); Monocytes # 0.7 10*3/uL (0.11-0.8); Monocytes % 4.3 % (1.7-12.7); Neutrophils # 14.6 10*3/uL (1.4-7.4); Neutrophils % 89.6 % (38.7-73.9); Platelet Count 278 T/CUMM (130-400); Red Cell Distribution Width 18.5 % (9.3-17.3); White Blood Count 16.3 T/CUMM (4-12)
[2019-01-18 05:29] LABS: Calcium 8.2 MG/DL (8.5-10.1); Osmolality,Calculated 269.5 MOS/KG (273-304); Potassium 4.2 MMOL/L (3.5-5.1)
[2019-01-18 05:45] LABS: Band Neutrophils 1 % (0-10); Hypochromasia 1+; Lymphocytes 6 % (20-55); Platelet Estimate Adequate; Segmented Neutrophils 90 % (50-85); Total Cells Counted 100
[2019-01-18 05:47] LABS: Macrocytosis 1+
[2019-01-18] MEDS: cefTAZidime 1,000 MG in SYRINGE 1 EACH IV SCH ×3 (06:07→23:37)
[2019-01-18] MEDS: BUDESONIDE 0.25 MG/2 ML NEB RESP TX SCH ×2 (07:12→19:47)
[2019-01-18] MEDS: PANTOPRAZOLE 40 MG VIAL IV SCH (08:12)
[2019-01-18] MEDS: GABAPENTIN 600 MG TABLET PO SCH ×4 (08:13→20:49)
[2019-01-18] MEDS: MONTELUKAST 10 MG TABLET PO SCH ×2 (08:14→20:48)
[2019-01-18] MEDS: METOPROLOL TARTRATE 25 MG TABLET PO SCH ×2 (08:14→20:49)
[2019-01-18] MEDS: FERROUS SULFATE 325 MG TABLET PO SCH (08:14)
[2019-01-18] MEDS: NICOTINE 14 MG/24 HR PATCH TRANSDERM SCH (08:15)
[2019-01-18] MEDS: methylPREDNISolone SOD SUC 40 MG/1 ML VIAL IV SCH ×2 (08:17→20:51)
[2019-01-18] MEDS: CELECOXIB 100 MG CAPSULE PO SCH ×2 (08:17→20:49)
[2019-01-18] MEDS ORDERED: ALUM/MAG/SIMETH/LIDO VISC 1:1 30 ML BOTTLE PO ONE (17:16)
[2019-01-18] MEDS: ASCORBIC ACID 500 MG TABLET PO SCH (20:48)
[2019-01-18] MEDS: ASPIRIN EC 325 MG TABLET PO SCH (20:49)
[2019-01-19] MEDS: ALBUTEROL/IPRATROPIUM 3 ML NEB RESP TX SCH ×4 (00:37→19:44)
[2019-01-19] MEDS: VANCOMYCIN INJ 1,250 MG in SODIUM CHLORIDE 0.9% 250 ML IV SCH ×2 (02:48→14:58)
[2019-01-19 05:16] LABS: Basophils % 0.1 % (0.0-0.8); Eosinophils % 0.1 % (0.00-10.9); Hemoglobin 11.7 GM/DL (14.0-18.0); Immature Granulocytes % 1.5 %; Immature Granulocytes Absolute 0.25 #; Lymphocytes # 0.9 10*3/uL (1.4-4.0); Lymphocytes % 5.1 % (21.2-54.2); Mean Corpuscular HGB Conc 31.6 GM/DL (32-36); Mean Corpuscular Hemoglobin 25 PG (27-34); Mean Corpuscular Volume 79.7 FL (87-102); Mean Platelet Volume 10.5 FL (9.6-12.0); Monocytes % 6.2 % (1.7-12.7); Neutrophils # 14.4 10*3/uL (1.4-7.4); Platelet Count 275 T/CUMM (130-400); Red Blood Count 4.64 MC/CUMM (3.8-5.5); Red Cell Distribution Width 18.6 % (9.3-17.3); White Blood Count 16.5 T/CUMM (4-12)
[2019-01-19 05:33] LABS: Calcium 8.1 MG/DL (8.5-10.1); Osmolality,Calculated 270.5 MOS/KG (273-304); Potassium 4.2 MMOL/L (3.5-5.1)
[2019-01-19] MEDS: cefTAZidime 1,000 MG in SYRINGE 1 EACH IV SCH ×3 (06:41→23:15)
[2019-01-19] MEDS: BUDESONIDE 0.25 MG/2 ML NEB RESP TX SCH ×2 (07:08→19:44)
[2019-01-19] MEDS: methylPREDNISolone SOD SUC 40 MG/1 ML VIAL IV SCH (08:47)
[2019-01-19] MEDS: METOPROLOL TARTRATE 25 MG TABLET PO SCH ×2 (08:48→20:57)
[2019-01-19] MEDS: ASCORBIC ACID 500 MG TABLET PO SCH ×2 (08:48→20:57)
[2019-01-19] MEDS: GABAPENTIN 600 MG TABLET PO SCH ×4 (08:48→20:57)
[2019-01-19] MEDS: FERROUS SULFATE 325 MG TABLET PO SCH (08:48)
[2019-01-19] MEDS: MONTELUKAST 10 MG TABLET PO SCH ×2 (08:49→20:57)
[2019-01-19] MEDS: PANTOPRAZOLE 40 MG VIAL IV SCH (08:49)
[2019-01-19] MEDS: CELECOXIB 100 MG CAPSULE PO SCH ×2 (08:56→20:57)
[2019-01-19] MEDS: NICOTINE 14 MG/24 HR PATCH TRANSDERM SCH (08:57)
[2019-01-19] MEDS: ASPIRIN EC 325 MG TABLET PO SCH (20:57)
[2019-01-20] MEDS: ALBUTEROL/IPRATROPIUM 3 ML NEB RESP TX SCH ×4 (00:47→19:50)
[2019-01-20] MEDS: VANCOMYCIN INJ 1,250 MG in SODIUM CHLORIDE 0.9% 250 ML IV SCH ×2 (03:10→15:43)
[2019-01-20 06:29] LABS: Basophils % 0.1 % (0.0-0.8); Hemoglobin 11.5 GM/DL (14.0-18.0); Immature Granulocytes % 1.8 %; Immature Granulocytes Absolute 0.32 #; Lymphocytes % 11.3 % (21.2-54.2); Mean Corpuscular HGB Conc 31.1 GM/DL (32-36); Mean Corpuscular Hemoglobin 25 PG (27-34); Mean Corpuscular Volume 81.9 FL (87-102); Mean Platelet Volume 10.4 FL (9.6-12.0); Monocytes # 1.5 10*3/uL (0.11-0.8); Monocytes % 8.3 % (1.7-12.7); Neutrophils # 13.9 10*3/uL (1.4-7.4); Neutrophils % 78.5 % (38.7-73.9); Platelet Count 226 T/CUMM (130-400); Red Blood Count 4.52 MC/CUMM (3.8-5.5); White Blood Count 17.8 T/CUMM (4-12)
[2019-01-20] MEDS: cefTAZidime 1,000 MG in SYRINGE 1 EACH IV SCH ×3 (06:29→22:43)
[2019-01-20 06:47] LABS: Osmolality,Calculated 268.4 MOS/KG (273-304)
[2019-01-20] MEDS: BUDESONIDE 0.25 MG/2 ML NEB RESP TX SCH ×2 (07:15→19:50)
[2019-01-20] MEDS: PANTOPRAZOLE 40 MG VIAL IV SCH (09:11)
[2019-01-20] MEDS: methylPREDNISolone SOD SUC 40 MG/1 ML VIAL IV SCH (09:16)
[2019-01-20] MEDS: FERROUS SULFATE 325 MG TABLET PO SCH (09:18)
[2019-01-20] MEDS: METOPROLOL TARTRATE 25 MG TABLET PO SCH ×2 (09:19→20:39)
[2019-01-20] MEDS: ASCORBIC ACID 500 MG TABLET PO SCH ×2 (09:19→20:39)
[2019-01-20] MEDS: GABAPENTIN 600 MG TABLET PO SCH ×4 (09:19→20:38)
[2019-01-20] MEDS: CELECOXIB 100 MG CAPSULE PO SCH ×2 (09:20→20:38)
[2019-01-20] MEDS: MONTELUKAST 10 MG TABLET PO SCH ×2 (09:20→20:38)
[2019-01-20] MEDS: NICOTINE 14 MG/24 HR PATCH TRANSDERM SCH (09:24)
[2019-01-20] MEDS: ASPIRIN EC 325 MG TABLET PO SCH (20:38)
[2019-01-21] MEDS: ALBUTEROL/IPRATROPIUM 3 ML NEB RESP TX SCH ×4 (00:03→19:42)
[2019-01-21] MEDS: VANCOMYCIN INJ 1,250 MG in SODIUM CHLORIDE 0.9% 250 ML IV SCH ×2 (02:53→15:41)
[2019-01-21] MEDS: cefTAZidime 1,000 MG in SYRINGE 1 EACH IV SCH ×3 (06:19→23:09)
[2019-01-21] MEDS: BUDESONIDE 0.25 MG/2 ML NEB RESP TX SCH ×2 (07:09→19:42)
[2019-01-21] MEDS: PANTOPRAZOLE 40 MG VIAL IV SCH (09:23)
[2019-01-21] MEDS: methylPREDNISolone SOD SUC 40 MG/1 ML VIAL IV SCH (09:25)
[2019-01-21] MEDS: FERROUS SULFATE 325 MG TABLET PO SCH (09:26)
[2019-01-21] MEDS: CELECOXIB 100 MG CAPSULE PO SCH ×2 (09:26→20:38)
[2019-01-21] MEDS: METOPROLOL TARTRATE 25 MG TABLET PO SCH ×2 (09:26→20:38)
[2019-01-21] MEDS: MONTELUKAST 10 MG TABLET PO SCH ×2 (09:26→20:39)
[2019-01-21] MEDS: ASCORBIC ACID 500 MG TABLET PO SCH ×2 (09:26→20:39)
[2019-01-21] MEDS: GABAPENTIN 600 MG TABLET PO SCH ×4 (09:26→20:38)
[2019-01-21] MEDS: NICOTINE 14 MG/24 HR PATCH TRANSDERM SCH (09:27)
[2019-01-21] MEDS: ASPIRIN EC 325 MG TABLET PO SCH (20:39)
[2019-01-22] MEDS: ALBUTEROL/IPRATROPIUM 3 ML NEB RESP TX SCH ×4 (00:53→20:07)
[2019-01-22] MEDS: VANCOMYCIN INJ 1,250 MG in SODIUM CHLORIDE 0.9% 250 ML IV SCH ×2 (03:04→16:47)
[2019-01-22 04:33] LABS: Basophils % 0.1 % (0.0-0.8); Eosinophils % 0.2 % (0.00-10.9); Hematocrit 34.6 VOL% (42.0-52.0); Hemoglobin 10.5 GM/DL (14.0-18.0); Immature Granulocytes % 1.3 %; Immature Granulocytes Absolute 0.23 #; Lymphocytes # 1.7 10*3/uL (1.4-4.0); Lymphocytes % 9.6 % (21.2-54.2); Mean Corpuscular HGB Conc 30.3 GM/DL (32-36); Mean Corpuscular Hemoglobin 25 PG (27-34); Mean Corpuscular Volume 82.4 FL (87-102); Mean Platelet Volume 10.3 FL (9.6-12.0); Monocytes # 1.6 10*3/uL (0.11-0.8); Monocytes % 8.9 % (1.7-12.7); Neutrophils # 14.1 10*3/uL (1.4-7.4); Neutrophils % 79.9 % (38.7-73.9); Platelet Count 214 T/CUMM (130-400); Red Cell Distribution Width 19.2 % (9.3-17.3); White Blood Count 17.7 T/CUMM (4-12)
[2019-01-22 05:04] LABS: Calcium 7.5 MG/DL (8.5-10.1); Osmolality,Calculated 274.8 MOS/KG (273-304); Potassium 3.5 MMOL/L (3.5-5.1)
[2019-01-22] MEDS: cefTAZidime 1,000 MG in SYRINGE 1 EACH IV SCH ×3 (06:17→23:12)
[2019-01-22] MEDS: BUDESONIDE 0.25 MG/2 ML NEB RESP TX SCH ×2 (07:47→20:07)
[2019-01-22] MEDS: FERROUS SULFATE 325 MG TABLET PO SCH (08:49)
[2019-01-22] MEDS: CELECOXIB 100 MG CAPSULE PO SCH ×2 (08:49→20:35)
[2019-01-22] MEDS: MONTELUKAST 10 MG TABLET PO SCH ×2 (08:49→20:35)
[2019-01-22] MEDS: METOPROLOL TARTRATE 25 MG TABLET PO SCH ×2 (08:49→20:36)
[2019-01-22] MEDS: ASCORBIC ACID 500 MG TABLET PO SCH ×2 (08:49→20:36)
[2019-01-22] MEDS: GABAPENTIN 600 MG TABLET PO SCH ×4 (08:49→20:35)
[2019-01-22] MEDS: NICOTINE 14 MG/24 HR PATCH TRANSDERM SCH (08:50)
[2019-01-22] MEDS: methylPREDNISolone SOD SUC 40 MG/1 ML VIAL IV SCH (09:03)
[2019-01-22] MEDS: PANTOPRAZOLE 40 MG VIAL IV SCH (09:04)
[2019-01-22] MEDS: ASPIRIN EC 81 MG TABLET PO SCH (20:36)
[2019-01-23] MEDS: ALBUTEROL/IPRATROPIUM 3 ML NEB RESP TX SCH ×4 (00:44→19:29)
[2019-01-23] MEDS: VANCOMYCIN INJ 1,250 MG in SODIUM CHLORIDE 0.9% 250 ML IV SCH ×2 (02:58→18:08)
[2019-01-23] MEDS: cefTAZidime 1,000 MG in SYRINGE 1 EACH IV SCH ×3 (06:32→23:01)
[2019-01-23] MEDS: BUDESONIDE 0.25 MG/2 ML NEB RESP TX SCH ×2 (07:05→19:31)
[2019-01-23] MEDS: PANTOPRAZOLE 40 MG VIAL IV SCH (10:26)
[2019-01-23] MEDS: methylPREDNISolone SOD SUC 40 MG/1 ML VIAL IV SCH (10:29)
[2019-01-23] MEDS: CELECOXIB 100 MG CAPSULE PO SCH ×2 (10:31→20:55)
[2019-01-23] MEDS: METOPROLOL TARTRATE 25 MG TABLET PO SCH ×2 (10:31→20:56)
[2019-01-23] MEDS: MONTELUKAST 10 MG TABLET PO SCH ×2 (10:31→20:55)
[2019-01-23] MEDS: ASCORBIC ACID 500 MG TABLET PO SCH ×2 (10:32→20:56)
[2019-01-23] MEDS: FERROUS SULFATE 325 MG TABLET PO SCH (10:33)
[2019-01-23] MEDS: GABAPENTIN 600 MG TABLET PO SCH ×4 (10:33→20:55)
[2019-01-23] MEDS: NICOTINE 14 MG/24 HR PATCH TRANSDERM SCH (10:36)
[2019-01-23] MEDS: ASPIRIN EC 81 MG TABLET PO SCH (20:55)
[2019-01-24] MEDS: ALBUTEROL/IPRATROPIUM 3 ML NEB RESP TX SCH ×4 (00:33→19:30)
[2019-01-24] MEDS: VANCOMYCIN INJ 1,250 MG in SODIUM CHLORIDE 0.9% 250 ML IV SCH ×2 (03:07→17:31)
[2019-01-24 05:26] LABS: Basophils % 0.1 % (0.0-0.8); Eosinophils # 0.1 10*3/uL (0.0-0.87); Eosinophils % 0.7 % (0.00-10.9); Hemoglobin 11.1 GM/DL (14.0-18.0); Immature Granulocytes % 0.5 %; Immature Granulocytes Absolute 0.09 #; Lymphocytes # 1.4 10*3/uL (1.4-4.0); Lymphocytes % 8.4 % (21.2-54.2); Mean Corpuscular HGB Conc 31.7 GM/DL (32-36); Mean Corpuscular Hemoglobin 26 PG (27-34); Mean Corpuscular Volume 81.2 FL (87-102); Mean Platelet Volume 10.3 FL (9.6-12.0); Monocytes # 1.3 10*3/uL (0.11-0.8); Monocytes % 7.8 % (1.7-12.7); Neutrophils # 13.8 10*3/uL (1.4-7.4); Neutrophils % 82.5 % (38.7-73.9); Platelet Count 221 T/CUMM (130-400); Red Blood Count 4.31 MC/CUMM (3.8-5.5); Red Cell Distribution Width 19.4 % (9.3-17.3); White Blood Count 16.7 T/CUMM (4-12)
[2019-01-24 05:50] LABS: Calcium 8.1 MG/DL (8.5-10.1); Osmolality,Calculated 274.7 MOS/KG (273-304); Potassium 3.7 MMOL/L (3.5-5.1)
[2019-01-24] MEDS: cefTAZidime 1,000 MG in SYRINGE 1 EACH IV SCH ×2 (06:14→17:28)
[2019-01-24] MEDS: BUDESONIDE 0.25 MG/2 ML NEB RESP TX SCH ×2 (07:27→19:30)
[2019-01-24] MEDS: ASCORBIC ACID 500 MG TABLET PO SCH ×2 (10:22→21:13)
[2019-01-24] MEDS: CELECOXIB 100 MG CAPSULE PO SCH ×2 (10:22→21:13)
[2019-01-24] MEDS: GABAPENTIN 600 MG TABLET PO SCH ×4 (10:22→21:14)
[2019-01-24] MEDS: METOPROLOL TARTRATE 25 MG TABLET PO SCH ×2 (10:23→21:14)
[2019-01-24] MEDS: MONTELUKAST 10 MG TABLET PO SCH ×2 (10:23→21:13)
[2019-01-24] MEDS: FERROUS SULFATE 325 MG TABLET PO SCH (10:23)
[2019-01-24] MEDS: methylPREDNISolone SOD SUC 40 MG/1 ML VIAL IV SCH (10:24)
[2019-01-24] MEDS: PANTOPRAZOLE 40 MG VIAL IV SCH (10:24)
[2019-01-24] MEDS: NICOTINE 14 MG/24 HR PATCH TRANSDERM SCH (11:00)
[2019-01-24] MEDS: DORNASE ALFA 2.5 MG/2.5 ML VIAL RESP TX SCH ×2 (13:50→19:30)
[2019-01-24] MEDS: ASPIRIN EC 81 MG TABLET PO SCH (21:13)
[2019-01-25] MEDS: ALBUTEROL/IPRATROPIUM 3 ML NEB RESP TX SCH ×4 (00:19→19:12)
[2019-01-25] MEDS: cefTAZidime 1,000 MG in SYRINGE 1 EACH IV SCH ×3 (00:29→17:48)
[2019-01-25] MEDS: VANCOMYCIN INJ 1,250 MG in SODIUM CHLORIDE 0.9% 250 ML IV SCH ×2 (04:56→16:42)
[2019-01-25 05:36] LABS: Basophils % 0.1 % (0.0-0.8); Eosinophils # 0.2 10*3/uL (0.0-0.87); Eosinophils % 1.1 % (0.00-10.9); Hematocrit 35.4 VOL% (42.0-52.0); Hemoglobin 11.1 GM/DL (14.0-18.0); Immature Granulocytes % 0.5 %; Immature Granulocytes Absolute 0.06 #; Lymphocytes # 1.3 10*3/uL (1.4-4.0); Lymphocytes % 10.1 % (21.2-54.2); Mean Corpuscular HGB Conc 31.4 GM/DL (32-36); Mean Corpuscular Hemoglobin 25 PG (27-34); Mean Corpuscular Volume 80.5 FL (87-102); Mean Platelet Volume 10.5 FL (9.6-12.0); Monocytes % 7.2 % (1.7-12.7); Neutrophils # 10.6 10*3/uL (1.4-7.4); Platelet Count 211 T/CUMM (130-400); Red Cell Distribution Width 19.5 % (9.3-17.3); White Blood Count 13.1 T/CUMM (4-12)
[2019-01-25 05:55] LABS: Calcium 8.3 MG/DL (8.5-10.1); Osmolality,Calculated 272.8 MOS/KG (273-304); Potassium 3.7 MMOL/L (3.5-5.1)
[2019-01-25] MEDS: BUDESONIDE 0.25 MG/2 ML NEB RESP TX SCH ×2 (07:15→19:12)
[2019-01-25] MEDS: DORNASE ALFA 2.5 MG/2.5 ML VIAL RESP TX SCH ×2 (07:15→19:12)
[2019-01-25] MEDS: ASCORBIC ACID 500 MG TABLET PO SCH ×2 (08:33→20:45)
[2019-01-25] MEDS: MONTELUKAST 10 MG TABLET PO SCH ×2 (08:33→20:45)
[2019-01-25] MEDS: GABAPENTIN 600 MG TABLET PO SCH ×4 (08:34→20:45)
[2019-01-25] MEDS: METOPROLOL TARTRATE 25 MG TABLET PO SCH ×2 (08:34→20:45)
[2019-01-25] MEDS: FERROUS SULFATE 325 MG TABLET PO SCH (08:35)
[2019-01-25] MEDS: CELECOXIB 100 MG CAPSULE PO SCH ×2 (08:37→20:45)
[2019-01-25] MEDS: PANTOPRAZOLE 40 MG VIAL IV SCH (08:37)
[2019-01-25] MEDS: methylPREDNISolone SOD SUC 40 MG/1 ML VIAL IV SCH (08:38)
[2019-01-25] MEDS: NICOTINE 14 MG/24 HR PATCH TRANSDERM SCH (09:46)
[2019-01-25] MEDS: DOCUSATE SODIUM 100 MG CAPSULE PO SCH (20:45)
[2019-01-25] MEDS: ASPIRIN EC 81 MG TABLET PO SCH (20:47)
[2019-01-26] MEDS: ALBUTEROL/IPRATROPIUM 3 ML NEB RESP TX SCH ×3 (00:28→12:08)
[2019-01-26] MEDS: cefTAZidime 1,000 MG in SYRINGE 1 EACH IV SCH ×2 (00:57→09:06)
[2019-01-26] MEDS: VANCOMYCIN INJ 1,250 MG in SODIUM CHLORIDE 0.9% 250 ML IV SCH (04:37)
[2019-01-26] MEDS: DORNASE ALFA 2.5 MG/2.5 ML VIAL RESP TX SCH (08:28)
[2019-01-26] MEDS: BUDESONIDE 0.25 MG/2 ML NEB RESP TX SCH (08:28)
[2019-01-26] MEDS: FERROUS SULFATE 325 MG TABLET PO SCH (08:57)
[2019-01-26] MEDS: ASCORBIC ACID 500 MG TABLET PO SCH (08:57)
[2019-01-26] MEDS: DOCUSATE SODIUM 100 MG CAPSULE PO SCH (08:58)
[2019-01-26] MEDS: MONTELUKAST 10 MG TABLET PO SCH (08:58)
[2019-01-26] MEDS: CELECOXIB 100 MG CAPSULE PO SCH (08:58)
[2019-01-26] MEDS: METOPROLOL TARTRATE 25 MG TABLET PO SCH (08:58)
[2019-01-26] MEDS: GABAPENTIN 600 MG TABLET PO SCH ×2 (08:59→13:10)
[2019-01-26] MEDS: methylPREDNISolone SOD SUC 40 MG/1 ML VIAL IV SCH (09:03)
[2019-01-26] MEDS: PANTOPRAZOLE 40 MG VIAL IV SCH (09:04)
[2019-01-26] MEDS: NICOTINE 14 MG/24 HR PATCH TRANSDERM SCH (10:48)
[2019-01-26 11:21] VITALS: BP 106/64
== END 2019-01-26 15:50 | disposition home health service (06) | DRG 199 ==
LOC: EDBD → EDUNIT# → N.ED 04:16 → N.EDINP 05:45 → N.CC 06:07 → N.3E 01-11 17:11
PROVIDERS: ADMIT Family Medicine; ATTEND Family Medicine

== ENCOUNTER 2019-01-29 12:35 | Inpatient (IN) ==
[2019-01-29 15:12] LABS: Basophils % 0.1 % (0.0-0.8); Eosinophils # 0.1 10*3/uL (0.0-0.87); Eosinophils % 0.4 % (0.00-10.9); Hematocrit 36.1 VOL% (42.0-52.0); Hemoglobin 11.2 GM/DL (14.0-18.0); Immature Granulocytes % 0.7 %; Immature Granulocytes Absolute 0.08 #; Lymphocytes # 0.8 10*3/uL (1.4-4.0); Lymphocytes % 6.7 % (21.2-54.2); Mean Corpuscular Volume 82.2 FL (87-102); Mean Platelet Volume 9.7 FL (9.6-12.0); Monocytes % 4.2 % (1.7-12.7); Neutrophils % 87.9 % (38.7-73.9); Platelet Count 190 T/CUMM (130-400); Red Blood Count 4.39 MC/CUMM (3.8-5.5); Red Cell Distribution Width 19.2 % (9.3-17.3); White Blood Count 12.3 T/CUMM (4-12)
[2019-01-29 15:25] LABS: INR 0.9; PT Patient Result 9.9 SECS
[2019-01-29 15:33] LABS: Alanine Aminotransferase 31 U/L (16-61); Albumin 2.6 G/DL (3.4-5.0); Alkaline Phosphatase 102 U/L (45-117); Aspartate Amino Transferase 18 U/L (0-37); Blood Urea Nitrogen 9 MG/DL (7-18); Calcium 8.3 MG/DL (8.5-10.1); Glucose 104 MG/DL (74-106); Osmolality,Calculated 266.2 MOS/KG (273-304); Total Protein 6.4 G/DL (6.4-8.3)
[2019-01-29 15:43] LABS: Troponin I 0.191 NG/ML (0.00-0.045)
[2019-01-29] MEDS ORDERED: methylPREDNISolone SOD SUC 125 MG/2 ML VIAL IV STA (15:46)
[2019-01-29] MEDS ORDERED: ALBUTEROL NEB SOLN 5 MG/ML 20 ML/BOTTLE CONT NEB STA (15:46)
[2019-01-29] MEDS ORDERED: MIDAZOLAM 2 MG/2 ML VIAL ONE (17:00)
[2019-01-29] MEDS ORDERED: GLUCAGON 1 MG VIAL IM PRN ×2 (17:25→17:30)
[2019-01-29] MEDS ORDERED: DEXTROSE 50% 25 GM/50 ML VIAL IV PRN ×2 (17:25→17:30)
[2019-01-29] MEDS ORDERED: oxyCODONE/ACETAMINOPHEN 5-325 MG TABLET PO STA (17:31)
[2019-01-29] MEDS ORDERED: LEVOFLOXACIN 750 MG TABLET PO STA (17:32)
[2019-01-29] MEDS ORDERED: MIDAZOLAM 2 MG/2 ML VIAL IV ONE (18:32)
[2019-01-29] MEDS: GABAPENTIN 600 MG TABLET PO SCH (20:50)
[2019-01-29] MEDS: METOPROLOL TARTRATE 25 MG TABLET PO SCH (20:51)
[2019-01-29] MEDS: CELECOXIB 100 MG CAPSULE PO SCH (20:51)
[2019-01-29] MEDS: ASPIRIN EC 325 MG TABLET PO SCH (20:51)
[2019-01-29] MEDS: SIMVASTATIN 20 MG TABLET PO SCH (20:51)
[2019-01-29] MEDS: PANTOPRAZOLE 40 MG TABLET PO SCH (20:51)
[2019-01-29] MEDS ORDERED: ALBUTEROL/IPRATROPIUM 3 ML NEB RESP TX SCH (21:00)
[2019-01-29] MEDS ORDERED: ZOLPIDEM 5 MG TABLET PO ONE (23:05)
[2019-01-29] MEDS: AMIODARONE 200 MG TABLET PO SCH (23:18)
[2019-01-30 05:43] LABS: Basophils % 0.1 % (0.0-0.8); Hematocrit 35.5 VOL% (42.0-52.0); Immature Granulocytes % 0.8 %; Immature Granulocytes Absolute 0.09 #; Lymphocytes # 0.8 10*3/uL (1.4-4.0); Lymphocytes % 7.7 % (21.2-54.2); Mean Corpuscular Volume 82.2 FL (87-102); Mean Platelet Volume 9.7 FL (9.6-12.0); Monocytes % 3.5 % (1.7-12.7); Neutrophils % 87.9 % (38.7-73.9); Platelet Count 198 T/CUMM (130-400); Red Blood Count 4.32 MC/CUMM (3.8-5.5)
[2019-01-30 05:51] LABS: Albumin 2.6 G/DL (3.4-5.0); Bilirubin,Total 0.5 MG/DL (0.2-1.0); Calcium 8.6 MG/DL (8.5-10.1); Osmolality,Calculated 268.1 MOS/KG (273-304); Total Protein 6.4 G/DL (6.4-8.3)
[2019-01-30] MEDS: ALBUTEROL/IPRATROPIUM 3 ML NEB RESP TX SCH ×4 (07:50→19:19)
[2019-01-30] MEDS: GABAPENTIN 600 MG TABLET PO SCH ×4 (09:20→22:02)
[2019-01-30] MEDS: AMIODARONE 200 MG TABLET PO SCH ×2 (09:20→22:01)
[2019-01-30] MEDS: CELECOXIB 100 MG CAPSULE PO SCH ×2 (09:20→22:00)
[2019-01-30] MEDS: PANTOPRAZOLE 40 MG TABLET PO SCH ×2 (09:21→22:01)
[2019-01-30] MEDS: predniSONE 20 MG TABLET PO SCH (09:21)
[2019-01-30] MEDS: METOPROLOL TARTRATE 25 MG TABLET PO SCH ×2 (09:21→22:01)
[2019-01-30] MEDS: SODIUM CHLORIDE 0.9% 1,000 ML IV SCH ×2 (09:31→17:06)
[2019-01-30] MEDS: oxyCODONE/ACETAMINOPHEN 5-325 MG TABLET PO PRN ×2 (14:21→22:00)
[2019-01-30] MEDS: ASPIRIN EC 325 MG TABLET PO SCH (22:00)
[2019-01-30] MEDS: SIMVASTATIN 20 MG TABLET PO SCH (22:00)
[2019-01-31] MEDS: ALBUTEROL/IPRATROPIUM 3 ML NEB RESP TX SCH ×4 (07:33→19:33)
[2019-01-31] MEDS: CELECOXIB 100 MG CAPSULE PO SCH ×2 (09:18→21:14)
[2019-01-31] MEDS: GABAPENTIN 600 MG TABLET PO SCH ×4 (09:18→21:14)
[2019-01-31] MEDS: PANTOPRAZOLE 40 MG TABLET PO SCH ×2 (09:18→21:14)
[2019-01-31] MEDS: AMIODARONE 200 MG TABLET PO SCH ×2 (09:18→21:14)
[2019-01-31] MEDS: predniSONE 20 MG TABLET PO SCH (09:18)
[2019-01-31] MEDS: METOPROLOL TARTRATE 25 MG TABLET PO SCH ×2 (09:18→21:14)
[2019-01-31] MEDS: CLORAZEPATE 3.75 MG TABLET PO PRN ×2 (14:09→18:45)
[2019-01-31] MEDS: SODIUM CHLORIDE 0.9% 1,000 ML IV SCH (18:47)
[2019-01-31] MEDS: oxyCODONE/ACETAMINOPHEN 5-325 MG TABLET PO PRN (21:13)
[2019-01-31] MEDS: ASPIRIN EC 325 MG TABLET PO SCH (21:14)
[2019-01-31] MEDS: SIMVASTATIN 20 MG TABLET PO SCH (21:14)
[2019-02-01] MEDS: ALBUTEROL/IPRATROPIUM 3 ML NEB RESP TX SCH ×4 (07:05→18:59)
[2019-02-01] MEDS: PANTOPRAZOLE 40 MG TABLET PO SCH ×2 (08:32→20:45)
[2019-02-01] MEDS: AMIODARONE 200 MG TABLET PO SCH ×2 (08:32→20:46)
[2019-02-01] MEDS: predniSONE 20 MG TABLET PO SCH (08:32)
[2019-02-01] MEDS: GABAPENTIN 600 MG TABLET PO SCH ×4 (08:32→20:45)
[2019-02-01] MEDS: METOPROLOL TARTRATE 25 MG TABLET PO SCH ×2 (08:32→20:46)
[2019-02-01] MEDS: CELECOXIB 100 MG CAPSULE PO SCH ×2 (08:33→20:45)
[2019-02-01] MEDS: ASPIRIN EC 325 MG TABLET PO SCH (20:45)
[2019-02-01] MEDS: oxyCODONE/ACETAMINOPHEN 5-325 MG TABLET PO PRN (20:46)
[2019-02-01] MEDS: SIMVASTATIN 20 MG TABLET PO SCH (20:46)
[2019-02-02] MEDS: CLORAZEPATE 3.75 MG TABLET PO PRN ×4 (00:36→22:08)
[2019-02-02] MEDS: ALBUTEROL/IPRATROPIUM 3 ML NEB RESP TX SCH ×4 (07:19→19:13)
[2019-02-02] MEDS: predniSONE 20 MG TABLET PO SCH (09:20)
[2019-02-02] MEDS: PANTOPRAZOLE 40 MG TABLET PO SCH ×2 (09:20→22:08)
[2019-02-02] MEDS: AMIODARONE 200 MG TABLET PO SCH ×2 (09:20→22:08)
[2019-02-02] MEDS: METOPROLOL TARTRATE 25 MG TABLET PO SCH ×2 (09:20→22:08)
[2019-02-02] MEDS: GABAPENTIN 600 MG TABLET PO SCH ×4 (09:20→22:08)
[2019-02-02] MEDS: CELECOXIB 100 MG CAPSULE PO SCH ×2 (09:20→23:06)
[2019-02-02] MEDS: SODIUM CHLORIDE 0.9% 1,000 ML IV SCH (10:12)
[2019-02-02] MEDS: oxyCODONE/ACETAMINOPHEN 5-325 MG TABLET PO PRN (20:25)
[2019-02-02] MEDS: SIMVASTATIN 20 MG TABLET PO SCH (22:08)
[2019-02-02] MEDS: ASPIRIN EC 325 MG TABLET PO SCH (22:08)
[2019-02-03] MEDS: ALBUTEROL/IPRATROPIUM 3 ML NEB RESP TX SCH ×4 (08:10→18:51)
[2019-02-03] MEDS: METOPROLOL TARTRATE 25 MG TABLET PO SCH ×2 (08:32→22:20)
[2019-02-03] MEDS: predniSONE 20 MG TABLET PO SCH (08:33)
[2019-02-03] MEDS: AMIODARONE 200 MG TABLET PO SCH ×2 (08:33→22:20)
[2019-02-03] MEDS: GABAPENTIN 600 MG TABLET PO SCH ×4 (08:33→22:19)
[2019-02-03] MEDS: PANTOPRAZOLE 40 MG TABLET PO SCH ×2 (08:33→22:20)
[2019-02-03] MEDS: CELECOXIB 100 MG CAPSULE PO SCH ×2 (08:33→22:23)
[2019-02-03] MEDS: CLORAZEPATE 3.75 MG TABLET PO PRN ×3 (08:41→22:23)
[2019-02-03] MEDS: ASPIRIN EC 325 MG TABLET PO SCH (22:20)
[2019-02-03] MEDS: SIMVASTATIN 20 MG TABLET PO SCH (22:20)
[2019-02-03] MEDS: oxyCODONE/ACETAMINOPHEN 5-325 MG TABLET PO PRN (22:23)
[2019-02-04] MEDS: oxyCODONE/ACETAMINOPHEN 5-325 MG TABLET PO PRN (02:19)
[2019-02-04 05:14] LABS: Basophils % 0.3 % (0.0-0.8); Eosinophils # 0.4 10*3/uL (0.0-0.87); Eosinophils % 3.5 % (0.00-10.9); Hematocrit 34.7 VOL% (42.0-52.0); Hemoglobin 10.7 GM/DL (14.0-18.0); Immature Granulocytes % 1.4 %; Immature Granulocytes Absolute 0.15 #; Lymphocytes # 1.4 10*3/uL (1.4-4.0); Lymphocytes % 12.7 % (21.2-54.2); Mean Corpuscular HGB Conc 30.8 GM/DL (32-36); Mean Corpuscular Volume 82.6 FL (87-102); Mean Platelet Volume 9.7 FL (9.6-12.0); Monocytes % 7.7 % (1.7-12.7); Neutrophils % 74.4 % (38.7-73.9); Platelet Count 267 T/CUMM (130-400); Red Cell Distribution Width 18.8 % (9.3-17.3); White Blood Count 10.7 T/CUMM (4-12)
[2019-02-04 05:48] LABS: Calcium 8.1 MG/DL (8.5-10.1); Osmolality,Calculated 272.8 MOS/KG (273-304); Thyroid Stimulating Hormone 11.1 uIU/ml (0.358-3.74)
[2019-02-04] MEDS: ALBUTEROL/IPRATROPIUM 3 ML NEB RESP TX SCH ×4 (07:46→19:37)
[2019-02-04] MEDS: AMIODARONE 200 MG TABLET PO SCH ×2 (09:35→21:19)
[2019-02-04] MEDS: PANTOPRAZOLE 40 MG TABLET PO SCH ×2 (09:35→21:19)
[2019-02-04] MEDS: predniSONE 20 MG TABLET PO SCH (09:35)
[2019-02-04] MEDS: GABAPENTIN 600 MG TABLET PO SCH ×4 (09:35→21:18)
[2019-02-04] MEDS: METOPROLOL TARTRATE 25 MG TABLET PO SCH ×2 (09:35→21:19)
[2019-02-04] MEDS: CELECOXIB 100 MG CAPSULE PO SCH ×2 (09:35→21:19)
[2019-02-04] MEDS: ASPIRIN EC 325 MG TABLET PO SCH (21:18)
[2019-02-04] MEDS: SIMVASTATIN 20 MG TABLET PO SCH (21:19)
[2019-02-05 05:22] LABS: Basophils % 0.2 % (0.0-0.8); Eosinophils # 0.4 10*3/uL (0.0-0.87); Hematocrit 35.7 VOL% (42.0-52.0); Hemoglobin 11.1 GM/DL (14.0-18.0); Immature Granulocytes % 2.3 %; Immature Granulocytes Absolute 0.24 #; Lymphocytes # 1.3 10*3/uL (1.4-4.0); Lymphocytes % 12.7 % (21.2-54.2); Mean Corpuscular HGB Conc 31.1 GM/DL (32-36); Mean Corpuscular Volume 81.7 FL (87-102); Mean Platelet Volume 9.8 FL (9.6-12.0); Monocytes % 7.8 % (1.7-12.7); Platelet Count 310 T/CUMM (130-400); Red Blood Count 4.37 MC/CUMM (3.8-5.5); Red Cell Distribution Width 18.8 % (9.3-17.3); White Blood Count 10.4 T/CUMM (4-12)
[2019-02-05 05:45] LABS: Calcium 8.4 MG/DL (8.5-10.1); Free T4 (Free Thyroxine) 1.1 NG/DL (0.76-1.46); Osmolality,Calculated 270.8 MOS/KG (273-304); Thyroid Stimulating Hormone 6.24 uIU/ml (0.358-3.74)
[2019-02-05] MEDS: METOPROLOL TARTRATE 25 MG TABLET PO SCH ×2 (08:51→21:03)
[2019-02-05] MEDS: AMIODARONE 200 MG TABLET PO SCH ×2 (08:51→21:03)
[2019-02-05] MEDS: GABAPENTIN 600 MG TABLET PO SCH ×4 (08:51→21:03)
[2019-02-05] MEDS: predniSONE 20 MG TABLET PO SCH (08:52)
[2019-02-05] MEDS: PANTOPRAZOLE 40 MG TABLET PO SCH ×2 (08:52→21:03)
[2019-02-05] MEDS: CELECOXIB 100 MG CAPSULE PO SCH ×2 (08:56→21:08)
[2019-02-05] MEDS: ALBUTEROL/IPRATROPIUM 3 ML NEB RESP TX SCH ×4 (09:23→19:40)
[2019-02-05] MEDS: SIMVASTATIN 20 MG TABLET PO SCH (21:03)
[2019-02-05] MEDS: oxyCODONE/ACETAMINOPHEN 5-325 MG TABLET PO PRN (21:03)
[2019-02-05] MEDS: CLORAZEPATE 3.75 MG TABLET PO PRN (21:03)
[2019-02-05] MEDS: ASPIRIN EC 325 MG TABLET PO SCH (21:03)
[2019-02-06 05:21] LABS: Basophils % 0.3 % (0.0-0.8); Eosinophils # 0.5 10*3/uL (0.0-0.87); Eosinophils % 4.2 % (0.00-10.9); Hematocrit 35.7 VOL% (42.0-52.0); Hemoglobin 10.8 GM/DL (14.0-18.0); Immature Granulocytes % 3.4 %; Immature Granulocytes Absolute 0.38 #; Lymphocytes # 1.5 10*3/uL (1.4-4.0); Lymphocytes % 13.5 % (21.2-54.2); Mean Corpuscular HGB Conc 30.3 GM/DL (32-36); Mean Corpuscular Volume 82.8 FL (87-102); Mean Platelet Volume 9.5 FL (9.6-12.0); Monocytes % 9.5 % (1.7-12.7); Neutrophils % 69.1 % (38.7-73.9); Platelet Count 318 T/CUMM (130-400); Red Blood Count 4.31 MC/CUMM (3.8-5.5); White Blood Count 11.3 T/CUMM (4-12)
[2019-02-06 05:40] LABS: Calcium 8.2 MG/DL (8.5-10.1); Osmolality,Calculated 271.8 MOS/KG (273-304)
[2019-02-06] MEDS: LEVOTHYROXINE 25 MCG TABLET PO SCH (06:09)
[2019-02-06] MEDS: ALBUTEROL/IPRATROPIUM 3 ML NEB RESP TX SCH ×4 (07:45→19:24)
[2019-02-06] MEDS: GABAPENTIN 600 MG TABLET PO SCH ×4 (08:52→20:27)
[2019-02-06] MEDS: PANTOPRAZOLE 40 MG TABLET PO SCH ×2 (08:52→20:27)
[2019-02-06] MEDS: AMIODARONE 200 MG TABLET PO SCH ×2 (08:52→20:31)
[2019-02-06] MEDS: predniSONE 20 MG TABLET PO SCH (08:52)
[2019-02-06] MEDS: CELECOXIB 100 MG CAPSULE PO SCH ×2 (08:52→20:27)
[2019-02-06] MEDS: METOPROLOL TARTRATE 25 MG TABLET PO SCH ×2 (08:52→20:27)
[2019-02-06] MEDS: ASPIRIN EC 325 MG TABLET PO SCH (20:27)
[2019-02-06] MEDS: oxyCODONE/ACETAMINOPHEN 5-325 MG TABLET PO PRN (20:27)
[2019-02-06] MEDS: SIMVASTATIN 20 MG TABLET PO SCH (20:27)
[2019-02-07] MEDS: CLORAZEPATE 3.75 MG TABLET PO PRN ×3 (04:11→21:33)
[2019-02-07] MEDS: LEVOTHYROXINE 25 MCG TABLET PO SCH (05:39)
[2019-02-07] MEDS: ALBUTEROL/IPRATROPIUM 3 ML NEB RESP TX SCH ×4 (07:20→19:23)
[2019-02-07] MEDS: AMIODARONE 200 MG TABLET PO SCH ×2 (08:42→21:33)
[2019-02-07] MEDS: METOPROLOL TARTRATE 25 MG TABLET PO SCH ×2 (08:42→21:33)
[2019-02-07] MEDS: predniSONE 20 MG TABLET PO SCH (08:42)
[2019-02-07] MEDS: PANTOPRAZOLE 40 MG TABLET PO SCH ×2 (08:42→21:34)
[2019-02-07] MEDS: CELECOXIB 100 MG CAPSULE PO SCH ×2 (08:42→21:33)
[2019-02-07] MEDS: GABAPENTIN 600 MG TABLET PO SCH ×4 (08:42→21:32)
[2019-02-07] MEDS: oxyCODONE/ACETAMINOPHEN 5-325 MG TABLET PO PRN (19:01)
[2019-02-07] MEDS: SIMVASTATIN 20 MG TABLET PO SCH (21:33)
[2019-02-07] MEDS: ASPIRIN EC 325 MG TABLET PO SCH (21:34)
[2019-02-08] MEDS: LEVOTHYROXINE 25 MCG TABLET PO SCH (05:35)
[2019-02-08] MEDS: ALBUTEROL/IPRATROPIUM 3 ML NEB RESP TX SCH ×4 (07:20→19:53)
[2019-02-08] MEDS: METOPROLOL TARTRATE 25 MG TABLET PO SCH ×2 (09:20→20:51)
[2019-02-08] MEDS: PANTOPRAZOLE 40 MG TABLET PO SCH ×2 (09:20→20:51)
[2019-02-08] MEDS: GABAPENTIN 600 MG TABLET PO SCH ×4 (09:20→20:51)
[2019-02-08] MEDS: CELECOXIB 100 MG CAPSULE PO SCH ×2 (09:20→22:57)
[2019-02-08] MEDS: AMIODARONE 200 MG TABLET PO SCH ×2 (09:20→20:51)
[2019-02-08] MEDS: predniSONE 20 MG TABLET PO SCH (09:21)
[2019-02-08] MEDS: SIMVASTATIN 20 MG TABLET PO SCH (20:51)
[2019-02-08] MEDS: ASPIRIN EC 325 MG TABLET PO SCH (20:51)
[2019-02-08] MEDS: oxyCODONE/ACETAMINOPHEN 5-325 MG TABLET PO PRN (20:59)
[2019-02-09] MEDS: LEVOTHYROXINE 25 MCG TABLET PO SCH (05:55)
[2019-02-09] MEDS: ALBUTEROL/IPRATROPIUM 3 ML NEB RESP TX SCH ×4 (08:07→19:29)
[2019-02-09] MEDS: predniSONE 20 MG TABLET PO SCH (09:15)
[2019-02-09] MEDS: CELECOXIB 100 MG CAPSULE PO SCH (09:15)
[2019-02-09] MEDS: GABAPENTIN 600 MG TABLET PO SCH ×4 (09:15→20:27)
[2019-02-09] MEDS: PANTOPRAZOLE 40 MG TABLET PO SCH ×2 (09:16→20:26)
[2019-02-09] MEDS: METOPROLOL TARTRATE 25 MG TABLET PO SCH ×2 (09:16→20:26)
[2019-02-09] MEDS: AMIODARONE 200 MG TABLET PO SCH ×2 (09:16→20:26)
[2019-02-09] MEDS: SIMVASTATIN 20 MG TABLET PO SCH (20:25)
[2019-02-09] MEDS: ASPIRIN EC 325 MG TABLET PO SCH (20:26)
[2019-02-09] MEDS: oxyCODONE/ACETAMINOPHEN 5-325 MG TABLET PO PRN (20:27)
[2019-02-09] MEDS: CLORAZEPATE 3.75 MG TABLET PO PRN (22:00)
[2019-02-10] MEDS: CELECOXIB 100 MG CAPSULE PO SCH ×3 (00:12→20:04)
[2019-02-10] MEDS: LEVOTHYROXINE 25 MCG TABLET PO SCH (05:39)
[2019-02-10] MEDS ORDERED: LIDOCAINE 2% 20 ML VIAL ONE (07:17)
[2019-02-10] MEDS: ALBUTEROL/IPRATROPIUM 3 ML NEB RESP TX SCH ×4 (08:05→20:41)
[2019-02-10] MEDS: AMIODARONE 200 MG TABLET PO SCH ×2 (08:45→20:05)
[2019-02-10] MEDS: PANTOPRAZOLE 40 MG TABLET PO SCH ×2 (08:45→20:06)
[2019-02-10] MEDS: GABAPENTIN 600 MG TABLET PO SCH ×4 (08:46→20:06)
[2019-02-10] MEDS: predniSONE 20 MG TABLET PO SCH (08:46)
[2019-02-10] MEDS: METOPROLOL TARTRATE 25 MG TABLET PO SCH ×2 (08:46→20:05)
[2019-02-10] MEDS ORDERED: MORPHINE 4 MG/1 ML VIAL ONE ×2 (09:48→10:36)
[2019-02-10] MEDS ORDERED: MORPHINE 10 MG/1 ML VIAL IV ONE (10:32)
[2019-02-10] MEDS: oxyCODONE/ACETAMINOPHEN 5-325 MG TABLET PO PRN ×3 (11:33→20:05)
[2019-02-10] MEDS: ASPIRIN EC 325 MG TABLET PO SCH (20:04)
[2019-02-10] MEDS: SIMVASTATIN 20 MG TABLET PO SCH (20:06)
[2019-02-11] MEDS: oxyCODONE/ACETAMINOPHEN 5-325 MG TABLET PO PRN ×3 (01:28→21:05)
[2019-02-11] MEDS: LEVOTHYROXINE 25 MCG TABLET PO SCH (06:20)
[2019-02-11] MEDS: ALBUTEROL/IPRATROPIUM 3 ML NEB RESP TX SCH ×4 (07:25→20:48)
[2019-02-11] MEDS: GABAPENTIN 600 MG TABLET PO SCH ×4 (08:55→21:04)
[2019-02-11] MEDS: CLORAZEPATE 3.75 MG TABLET PO PRN (08:55)
[2019-02-11] MEDS: predniSONE 20 MG TABLET PO SCH (08:55)
[2019-02-11] MEDS: AMIODARONE 200 MG TABLET PO SCH ×2 (08:55→21:04)
[2019-02-11] MEDS: CELECOXIB 100 MG CAPSULE PO SCH ×2 (08:55→21:04)
[2019-02-11] MEDS: METOPROLOL TARTRATE 25 MG TABLET PO SCH ×2 (08:55→20:58)
[2019-02-11] MEDS: PANTOPRAZOLE 40 MG TABLET PO SCH ×2 (08:56→21:04)
[2019-02-11] MEDS ORDERED: MAGNESIUM HYDROXIDE SUSP 30 ML UDCUP PO PRN (17:03)
[2019-02-11] MEDS: SIMVASTATIN 20 MG TABLET PO SCH (21:04)
[2019-02-11] MEDS: ASPIRIN EC 325 MG TABLET PO SCH (21:05)
[2019-02-12] MEDS: LEVOTHYROXINE 25 MCG TABLET PO SCH (05:33)
[2019-02-12] MEDS: oxyCODONE/ACETAMINOPHEN 5-325 MG TABLET PO PRN ×2 (05:45→15:28)
[2019-02-12] MEDS: ALBUTEROL/IPRATROPIUM 3 ML NEB RESP TX SCH ×4 (07:36→19:28)
[2019-02-12] MEDS: PANTOPRAZOLE 40 MG TABLET PO SCH ×2 (09:55→20:36)
[2019-02-12] MEDS: METOPROLOL TARTRATE 25 MG TABLET PO SCH ×2 (09:55→20:36)
[2019-02-12] MEDS: predniSONE 20 MG TABLET PO SCH (09:55)
[2019-02-12] MEDS: CELECOXIB 100 MG CAPSULE PO SCH ×2 (09:55→20:35)
[2019-02-12] MEDS: GABAPENTIN 600 MG TABLET PO SCH ×4 (09:55→20:36)
[2019-02-12] MEDS: AMIODARONE 200 MG TABLET PO SCH ×2 (09:55→20:36)
[2019-02-12] MEDS: DOCUSATE SODIUM 100 MG CAPSULE PO SCH ×2 (12:22→20:35)
[2019-02-12] MEDS ORDERED: LIDOCAINE 2% 20 ML VIAL ONE (13:31)
[2019-02-12] MEDS ORDERED: LIDOCAINE 2% 20 ML VIAL MISC INJ ONE (13:54)
[2019-02-12] MEDS: SIMVASTATIN 20 MG TABLET PO SCH (20:35)
[2019-02-12] MEDS: ASPIRIN EC 325 MG TABLET PO SCH (20:36)
[2019-02-13] MEDS: oxyCODONE/ACETAMINOPHEN 5-325 MG TABLET PO PRN ×4 (00:15→20:59)
[2019-02-13] MEDS: LEVOTHYROXINE 25 MCG TABLET PO SCH (05:32)
[2019-02-13] MEDS: ALBUTEROL/IPRATROPIUM 3 ML NEB RESP TX SCH ×4 (07:56→20:01)
[2019-02-13] MEDS: predniSONE 20 MG TABLET PO SCH (08:56)
[2019-02-13] MEDS: GABAPENTIN 600 MG TABLET PO SCH ×4 (08:56→21:00)
[2019-02-13] MEDS: AMIODARONE 200 MG TABLET PO SCH ×2 (08:56→21:00)
[2019-02-13] MEDS: PANTOPRAZOLE 40 MG TABLET PO SCH ×2 (08:56→21:00)
[2019-02-13] MEDS: CELECOXIB 100 MG CAPSULE PO SCH ×2 (08:56→20:58)
[2019-02-13] MEDS: METOPROLOL TARTRATE 25 MG TABLET PO SCH ×2 (08:56→20:59)
[2019-02-13] MEDS: DOCUSATE SODIUM 100 MG CAPSULE PO SCH ×2 (08:56→21:00)
[2019-02-13] MEDS: ASPIRIN EC 325 MG TABLET PO SCH (20:59)
[2019-02-13] MEDS: SIMVASTATIN 20 MG TABLET PO SCH (21:00)
[2019-02-14] MEDS: LEVOTHYROXINE 25 MCG TABLET PO SCH (05:37)
[2019-02-14] MEDS: ALBUTEROL/IPRATROPIUM 3 ML NEB RESP TX SCH ×4 (07:54→19:14)
[2019-02-14] MEDS: predniSONE 20 MG TABLET PO SCH (09:15)
[2019-02-14] MEDS: CELECOXIB 100 MG CAPSULE PO SCH ×2 (09:15→21:36)
[2019-02-14] MEDS: GABAPENTIN 600 MG TABLET PO SCH ×4 (09:15→21:36)
[2019-02-14] MEDS: AMIODARONE 200 MG TABLET PO SCH ×2 (09:15→21:37)
[2019-02-14] MEDS: PANTOPRAZOLE 40 MG TABLET PO SCH ×2 (09:15→21:38)
[2019-02-14] MEDS: METOPROLOL TARTRATE 25 MG TABLET PO SCH ×2 (09:15→21:37)
[2019-02-14] MEDS: DOCUSATE SODIUM 100 MG CAPSULE PO SCH ×2 (09:15→21:37)
[2019-02-14] MEDS: oxyCODONE/ACETAMINOPHEN 5-325 MG TABLET PO PRN ×3 (10:11→21:37)
[2019-02-14] MEDS ORDERED: MORPHINE 4 MG/1 ML VIAL ONE (13:02)
[2019-02-14] MEDS ORDERED: LIDOCAINE 2% 20 ML VIAL ONE (13:03)
[2019-02-14] MEDS ORDERED: MORPHINE 4 MG/1 ML VIAL IV ONE (13:20)
[2019-02-14] MEDS ORDERED: LIDOCAINE 2% 20 ML VIAL MISC INJ ONE (13:42)
[2019-02-14] MEDS ORDERED: DEXTROSE 50% 25 GM/50 ML SYRINGE IV PRN ×2 (14:00)
[2019-02-14] MEDS: ASPIRIN EC 325 MG TABLET PO SCH (21:37)
[2019-02-14] MEDS: SIMVASTATIN 20 MG TABLET PO SCH (21:37)
[2019-02-15] MEDS: oxyCODONE/ACETAMINOPHEN 5-325 MG TABLET PO PRN ×2 (01:28→07:05)
[2019-02-15] MEDS: LEVOTHYROXINE 25 MCG TABLET PO SCH (06:48)
[2019-02-15] MEDS ORDERED: ONDANSETRON 4 MG/2 ML VIAL IV PRN (06:53)
[2019-02-15] MEDS: ALBUTEROL/IPRATROPIUM 3 ML NEB RESP TX SCH ×4 (07:45→19:46)
[2019-02-15] MEDS ORDERED: BUPIVACAINE LIPOSOMAL 20 ML/266 MG VIAL ONE (10:27)
[2019-02-15] MEDS ORDERED: TISSUE ADHESIVE 1 EACH APPLICATOR TOP ONE (10:27)
[2019-02-15] MEDS ORDERED: TALC INTRAPLEURAL POWDER 3 GM VIAL INTRAPLEUR ONE (10:30)
[2019-02-15] MEDS ORDERED: HEPARIN/NACL 0.9% 2 UNITS/ML 500 ML IV ONE (10:32)
[2019-02-15] MEDS: CELECOXIB 100 MG CAPSULE PO SCH ×2 (10:58→20:49)
[2019-02-15] MEDS: METOPROLOL TARTRATE 25 MG TABLET PO SCH ×2 (10:59→20:49)
[2019-02-15] MEDS: GABAPENTIN 600 MG TABLET PO SCH ×2 (10:59→15:06)
[2019-02-15] MEDS: DOCUSATE SODIUM 100 MG CAPSULE PO SCH ×2 (10:59→20:49)
[2019-02-15] MEDS: AMIODARONE 200 MG TABLET PO SCH ×2 (10:59→20:49)
[2019-02-15] MEDS: predniSONE 20 MG TABLET PO SCH (10:59)
[2019-02-15] MEDS: PANTOPRAZOLE 40 MG TABLET PO SCH (10:59)
[2019-02-15] MEDS: LACTATED RINGERS 1,000 ML IV SCH (11:00)
[2019-02-15] MEDS ORDERED: CEFUROXIME 1,500 MG VIAL ONE (12:34)
[2019-02-15 12:39] LABS: Apearance,Urine CLEAR (Clear); Bacteria,Urine Occasional /HPF (Few); Bilirubin,Urine Negative (Negative); Blood, Urine Negative (Negative); Glucose,Urine (UA) Negative (Negative); Ketones,Urine Negative (Negative); Mucus,Urine Few /LPF (Occasional); Nitrite,Urine Negative (Negative); Protein,Urine Negative; RBC,Urine 5 /HPF (0-4); Squamous Epithelial Cell,Urine Occasional /HPF (0-10); Urine Color Yellow (Yellow); Urine Specific Gravity 1.023 (1.001-1.035); WBC,Urine 2 /HPF (0-6)
[2019-02-15] MEDS ORDERED: SEVOFLURANE 1 UNIT/15 MINUTE INH ONE (15:02)
[2019-02-15] MEDS ORDERED: ePHEDrine 50 MG/ML AMP ONE (15:02)
[2019-02-15] MEDS ORDERED: fentaNYL 100 MCG/2 ML VIAL ONE (15:02)
[2019-02-15] MEDS ORDERED: PROPOFOL 200 MG/20 ML VIAL IV ONE (15:02)
[2019-02-15] MEDS ORDERED: PHENYLEPHRINE 1 MG/10 ML SYRINGE IV ONE (15:03)
[2019-02-15] MEDS ORDERED: ROCURONIUM 100 MG/10 ML VIAL IV ONE (15:03)
[2019-02-15] MEDS ORDERED: GLYCOPYRROLATE 0.4 MG/2 ML VIAL ONE (15:03)
[2019-02-15] MEDS ORDERED: SUCCINYLCHOLINE 200 MG/10 ML VIAL ONE (15:03)
[2019-02-15] MEDS ORDERED: HYDROCORTISONE 100 MG VIAL ONE (15:03)
[2019-02-15] MEDS ORDERED: MIDAZOLAM 2 MG/2 ML VIAL ONE ×2 (15:03)
[2019-02-15] MEDS ORDERED: SODIUM CHLORIDE 0.9% 100 ML IV ONE (15:04)
[2019-02-15] MEDS ORDERED: LACTATED RINGERS 1,000 ML IV ONE (15:04)
[2019-02-15 15:10] LABS: ABG Base Excess 0.5 MMOL/L (-2.5-2.5); ABG HCO3 24.9 MMOL/L (20-26); ABG Oxygen Saturation 97.2 % (95-100); ABG PCO2 67.7 MM HG (35-48)
[2019-02-15] MEDS ORDERED: LACTATED RINGERS 500 ML IV ONE ×2 (16:03→17:57)
[2019-02-15 16:23] LABS: ABG Base Excess 1.9 MMOL/L (-2.5-2.5); ABG HCO3 25.9 MMOL/L (20-26); ABG Oxygen Saturation 89.3 % (95-100); ABG PCO2 49.9 MM HG (35-48); ABG PH 7.358 (7.35-7.45); ABG PO2 62.5 MM HG (80-95); ABG TCO2 25.3 MMOL/L (23-27)
[2019-02-15 16:26] LABS: Basophils # 0.1 10*3/uL (0.0-0.2); Basophils % 0.2 % (0.0-0.8); Eosinophils # 0.1 10*3/uL (0.0-0.87); Eosinophils % 0.3 % (0.00-10.9); Hematocrit 36.5 VOL% (42.0-52.0); Hemoglobin 10.9 GM/DL (14.0-18.0); Immature Granulocytes % 1.1 %; Lymphocytes # 0.4 10*3/uL (1.4-4.0); Lymphocytes % 1.7 % (21.2-54.2); Mean Corpuscular HGB Conc 29.9 GM/DL (32-36); Mean Corpuscular Volume 84.3 FL (87-102); Monocytes % 7.6 % (1.7-12.7); Neutrophils % 89.1 % (38.7-73.9); Platelet Count 258 T/CUMM (130-400); Red Blood Count 4.33 MC/CUMM (3.8-5.5); Red Cell Distribution Width 18.3 % (9.3-17.3); White Blood Count 26.3 T/CUMM (4-12)
[2019-02-15 16:45] LABS: Calcium 8.3 MG/DL (8.5-10.1); Osmolality,Calculated 270.2 MOS/KG (273-304)
[2019-02-15 16:46] LABS: Lymphocytes 1 % (20-55); Segmented Neutrophils 90 % (50-85); Total Cells Counted 100
[2019-02-15 16:47] LABS: Anisocytosis 1+; Hypochromasia Slight; Polychromasia Few
[2019-02-15 16:48] LABS: Platelet Estimate Adequate
[2019-02-15] MEDS: PROPOFOL 1,000 MG/100 ML BOTTLE IV SCH ×2 (17:02→21:53)
[2019-02-15] MEDS: SODIUM CHLORIDE 0.9% 1,000 ML IV SCH (17:03)
[2019-02-15] MEDS: GABAPENTIN 50 MG/ML 30 ML/BOTTLE PO SCH ×2 (17:58→21:53)
[2019-02-15] MEDS ORDERED: PHENYLEPHRINE DRIP 40 MG/250 ML PREMIX IV ONE (18:58)
[2019-02-15] MEDS: PHENYLEPHRINE DRIP 40 MG/250 ML PREMIX IV PRN (19:39)
[2019-02-15] MEDS: ASPIRIN EC 325 MG TABLET PO SCH (20:49)
[2019-02-15] MEDS: LANSOPRAZOLE ODT 30 MG TABLET PER TUBE SCH (21:53)
[2019-02-15] MEDS: SIMVASTATIN 20 MG TABLET PO SCH (21:54)
[2019-02-16] MEDS: PROPOFOL 1,000 MG/100 ML BOTTLE IV SCH ×5 (03:08→22:51)
[2019-02-16 03:53] LABS: ABG Base Excess 2.3 MMOL/L (-2.5-2.5); ABG HCO3 26.9 MMOL/L (20-26); ABG Oxygen Saturation 98.6 % (95-100); ABG PCO2 41.5 MM HG (35-48); ABG PH 7.429 (7.35-7.45); ABG PO2 151.2 MM HG (80-95); ABG TCO2 28.1 MMOL/L (23-27)
[2019-02-16 04:25] LABS: Basophils % 0.2 % (0.0-0.8); Eosinophils # 0.2 10*3/uL (0.0-0.87); Eosinophils % 0.8 % (0.00-10.9); Hematocrit 34.8 VOL% (42.0-52.0); Hemoglobin 10.8 GM/DL (14.0-18.0); Immature Granulocytes % 1.4 %; Immature Granulocytes Absolute 0.31 #; Lymphocytes # 1.4 10*3/uL (1.4-4.0); Lymphocytes % 6.3 % (21.2-54.2); Mean Corpuscular Volume 82.5 FL (87-102); Monocytes % 9.1 % (1.7-12.7); Neutrophils % 82.2 % (38.7-73.9); Platelet Count 296 T/CUMM (130-400); Red Blood Count 4.22 MC/CUMM (3.8-5.5); Red Cell Distribution Width 18.6 % (9.3-17.3); White Blood Count 21.7 T/CUMM (4-12)
[2019-02-16 04:34] LABS: Calcium 8.2 MG/DL (8.5-10.1); Osmolality,Calculated 270.1 MOS/KG (273-304)
[2019-02-16] MEDS: PHENYLEPHRINE DRIP 40 MG/250 ML PREMIX IV PRN ×3 (04:42→23:32)
[2019-02-16 04:46] LABS: Band Neutrophils 1 % (0-10); Lymphocytes 7 % (20-55); Platelet Estimate Normal; Polychromasia Few; Segmented Neutrophils 90 % (50-85); Total Cells Counted 100
[2019-02-16] MEDS: LEVOTHYROXINE 25 MCG TABLET PO SCH (06:23)
[2019-02-16] MEDS: ALBUTEROL/IPRATROPIUM 3 ML NEB RESP TX SCH ×4 (07:39→19:31)
[2019-02-16] MEDS: METOPROLOL TARTRATE 25 MG TABLET PO SCH ×2 (08:20→20:22)
[2019-02-16] MEDS: predniSONE 20 MG TABLET PO SCH (08:21)
[2019-02-16] MEDS: CELECOXIB 100 MG CAPSULE PO SCH ×2 (08:21→20:21)
[2019-02-16] MEDS: DOCUSATE SODIUM 100 MG CAPSULE PO SCH ×2 (08:21→20:21)
[2019-02-16] MEDS: AMIODARONE 200 MG TABLET PO SCH ×2 (08:21→20:21)
[2019-02-16] MEDS: GABAPENTIN 50 MG/ML 30 ML/BOTTLE PO SCH ×4 (08:21→20:22)
[2019-02-16] MEDS: LANSOPRAZOLE ODT 30 MG TABLET PER TUBE SCH ×2 (08:22→20:22)
[2019-02-16] MEDS: LACTATED RINGERS 1,000 ML IV SCH (11:21)
[2019-02-16] MEDS: SODIUM CHLORIDE 0.9% 1,000 ML IV SCH (13:12)
[2019-02-16] MEDS: oxyCODONE/ACETAMINOPHEN 5-325 MG TABLET PO PRN (20:21)
[2019-02-16] MEDS: ASPIRIN EC 325 MG TABLET PO SCH (20:21)
[2019-02-16] MEDS: SIMVASTATIN 20 MG TABLET PO SCH (20:22)
[2019-02-16] MEDS ORDERED: ACETAMINOPHEN 325 MG TABLET PO PRN (22:32)
[2019-02-17 00:23] LABS: ABG Base Excess 3.4 MMOL/L (-2.5-2.5); ABG HCO3 27.4 MMOL/L (20-26); ABG Oxygen Saturation 92.6 % (95-100); ABG PCO2 47.4 MM HG (35-48); ABG PH 7.395 (7.35-7.45); ABG PO2 68.7 MM HG (80-95); ABG TCO2 26.1 MMOL/L (23-27)
[2019-02-17] MEDS ORDERED: LACTATED RINGERS 1,000 ML IV ONE (01:55)
[2019-02-17] MEDS: VANCOMYCIN INJ 1,250 MG in SODIUM CHLORIDE 0.9% 250 ML IV SCH ×3 (01:55→17:00)
[2019-02-17] MEDS ORDERED: NOREPINEPHRINE 4 MG/4 ML VIAL IV ONE (01:56)
[2019-02-17] MEDS: NOREPINEPHRINE 8 MG in SODIUM CHLORIDE 0.9% 242 ML IV PRN ×3 (02:05→13:00)
[2019-02-17] MEDS: PIPERACILLIN/TAZOBACTAM 3,375 MG in SODIUM CHLORIDE 0.9% 100 ML IV SCH ×3 (02:59→18:35)
[2019-02-17] MEDS: PROPOFOL 1,000 MG/100 ML BOTTLE IV SCH ×3 (03:00→21:02)
[2019-02-17 04:25] LABS: ABG Base Excess -0.2 MMOL/L (-2.5-2.5); ABG HCO3 24.1 MMOL/L (20-26); ABG Oxygen Saturation 93.9 % (95-100); ABG PCO2 50.2 MM HG (35-48); ABG PH 7.328 (7.35-7.45); ABG PO2 77.1 MM HG (80-95); ABG TCO2 23.8 MMOL/L (23-27)
[2019-02-17 04:38] LABS: Basophils # 0.2 10*3/uL (0.0-0.2); Basophils % 0.4 % (0.0-0.8); Hematocrit 36.6 VOL% (42.0-52.0); Hemoglobin 11.1 GM/DL (14.0-18.0); Immature Granulocytes % 2.8 %; Lymphocytes # 1.6 10*3/uL (1.4-4.0); Lymphocytes % 3.8 % (21.2-54.2); Mean Corpuscular HGB Conc 30.3 GM/DL (32-36); Mean Corpuscular Volume 83.9 FL (87-102); Mean Platelet Volume 10.2 FL (9.6-12.0); Platelet Count 276 T/CUMM (130-400); Red Blood Count 4.36 MC/CUMM (3.8-5.5); Red Cell Distribution Width 18.6 % (9.3-17.3)
[2019-02-17 04:42] LABS: White Blood Count 42.6 T/CUMM (4-12)
[2019-02-17 05:07] LABS: Calcium 8.5 MG/DL (8.5-10.1); Osmolality,Calculated 270.1 MOS/KG (273-304)
[2019-02-17 05:23] LABS: Band Neutrophils 15 % (0-10); Lymphocytes 4 % (20-55); Segmented Neutrophils 70 % (50-85); Total Cells Counted 100
[2019-02-17 05:24] LABS: Anisocytosis 1+
[2019-02-17 05:25] LABS: Hypochromasia 1+; Ovalocytes Few; Platelet Estimate Adequate
[2019-02-17] MEDS: LEVOTHYROXINE 25 MCG TABLET PO SCH (05:51)
[2019-02-17] MEDS: SODIUM CHLORIDE 0.9% 1,000 ML IV SCH (07:04)
[2019-02-17] MEDS: ALBUTEROL/IPRATROPIUM 3 ML NEB RESP TX SCH ×4 (07:08→19:05)
[2019-02-17 07:12] LABS: ABG Base Excess -0.1 MMOL/L (-2.5-2.5); ABG HCO3 24.3 MMOL/L (20-26); ABG Oxygen Saturation 96.4 % (95-100); ABG PCO2 49.8 MM HG (35-48); ABG PH 7.332 (7.35-7.45); ABG PO2 91.7 MM HG (80-95); ABG TCO2 23.8 MMOL/L (23-27)
[2019-02-17] MEDS: CELECOXIB 100 MG CAPSULE PO SCH ×2 (09:49→21:51)
[2019-02-17] MEDS: predniSONE 20 MG TABLET PO SCH (09:50)
[2019-02-17] MEDS: METOPROLOL TARTRATE 25 MG TABLET PO SCH ×2 (09:50→21:58)
[2019-02-17] MEDS: LANSOPRAZOLE ODT 30 MG TABLET PER TUBE SCH ×2 (09:50→21:52)
[2019-02-17] MEDS: DOCUSATE SODIUM 100 MG CAPSULE PO SCH ×2 (09:51→21:52)
[2019-02-17] MEDS: GABAPENTIN 50 MG/ML 30 ML/BOTTLE PO SCH ×4 (09:51→21:53)
[2019-02-17] MEDS: AMIODARONE 200 MG TABLET PO SCH ×2 (09:51→21:52)
[2019-02-17 13:49] LABS: Apearance,Urine Slightly Hazy (Clear); Bilirubin,Urine Negative (Negative); Blood, Urine Moderate mg/dL (Negative); Glucose,Urine (UA) Negative (Negative); Granular Casts,Urine 5 /LPF (0-1); Hyaline Casts,Urine 1 /LPF (0-3); Ketones,Urine 5 mg/dL (Negative); Mucus,Urine Occasional /LPF (Occasional); Nitrite,Urine Negative (Negative); Protein,Urine 30 MG/DL; RBC,Urine 15 /HPF (0-4); Urine Color Yellow (Yellow); Urine Specific Gravity 1.023 (1.001-1.035); Urine Urobilinogen < 2.0 EU/DL (0.2-1.0); WBC,Urine 8 /HPF (0-6)
[2019-02-17] MEDS: LACTATED RINGERS 1,000 ML IV SCH (14:05)
[2019-02-17] MEDS: oxyCODONE/ACETAMINOPHEN 5-325 MG TABLET PO PRN (15:46)
[2019-02-17] MEDS: ZINC OXIDE PASTE 113 GM TUBE TOP SCH ×2 (18:34→21:53)
[2019-02-17] MEDS: INSULIN REGULAR 100 UNIT/ML SUBCUT SCH ×2 (18:35→23:37)
[2019-02-17] MEDS: SIMVASTATIN 20 MG TABLET PO SCH (21:52)
[2019-02-17] MEDS: ASPIRIN EC 325 MG TABLET PO SCH (21:52)
[2019-02-18] MEDS: NOREPINEPHRINE 8 MG in SODIUM CHLORIDE 0.9% 242 ML IV PRN ×2 (00:13→23:22)
[2019-02-18] MEDS: VANCOMYCIN INJ 1,250 MG in SODIUM CHLORIDE 0.9% 250 ML IV SCH ×3 (01:24→16:54)
[2019-02-18] MEDS: PIPERACILLIN/TAZOBACTAM 3,375 MG in SODIUM CHLORIDE 0.9% 100 ML IV SCH ×3 (02:25→18:26)
[2019-02-18] MEDS: SODIUM CHLORIDE 0.9% 1,000 ML IV SCH (03:09)
[2019-02-18 05:52] LABS: Basophils # 0.1 10*3/uL (0.0-0.2); Basophils % 0.2 % (0.0-0.8); Eosinophils % 0.1 % (0.00-10.9); Hematocrit 32.5 VOL% (42.0-52.0); Hemoglobin 9.9 GM/DL (14.0-18.0); Immature Granulocytes % 3.3 %; Immature Granulocytes Absolute 1.17 #; Lymphocytes # 1.3 10*3/uL (1.4-4.0); Lymphocytes % 3.6 % (21.2-54.2); Mean Corpuscular HGB Conc 30.5 GM/DL (32-36); Mean Platelet Volume 10.7 FL (9.6-12.0); Monocytes % 6.7 % (1.7-12.7); Neutrophils % 86.1 % (38.7-73.9); Platelet Count 230 T/CUMM (130-400); Red Blood Count 3.87 MC/CUMM (3.8-5.5); Red Cell Distribution Width 18.7 % (9.3-17.3); White Blood Count 35.9 T/CUMM (4-12)
[2019-02-18 06:05] LABS: ABG HCO3 27.8 MMOL/L (20-26); ABG Oxygen Saturation 93.3 % (95-100); ABG PCO2 54.6 MM HG (35-48); ABG PH 7.324 (7.35-7.45); ABG PO2 70.8 MM HG (80-95); ABG TCO2 29.4 MMOL/L (23-27)
[2019-02-18] MEDS: INSULIN REGULAR 100 UNIT/ML SUBCUT SCH ×3 (06:11→19:04)
[2019-02-18 06:16] LABS: Calcium 8.3 MG/DL (8.5-10.1); Osmolality,Calculated 277.8 MOS/KG (273-304)
[2019-02-18 06:37] LABS: Calcium 8.2 MG/DL (8.5-10.1); Osmolality,Calculated 279.7 MOS/KG (273-304)
[2019-02-18 06:40] LABS: Band Neutrophils 6 % (0-10); Lymphocytes 5 % (20-55); Segmented Neutrophils 87 % (50-85); Total Cells Counted 100
[2019-02-18 06:41] LABS: Anisocytosis 1+; Platelet Estimate Adequate
[2019-02-18] MEDS: LEVOTHYROXINE 25 MCG TABLET PO SCH (06:57)
[2019-02-18] MEDS: PROPOFOL 1,000 MG/100 ML BOTTLE IV SCH ×2 (06:58→16:55)
[2019-02-18] MEDS: ALBUTEROL/IPRATROPIUM 3 ML NEB RESP TX SCH ×4 (07:03→19:03)
[2019-02-18] MEDS: LANSOPRAZOLE ODT 30 MG TABLET PER TUBE SCH ×2 (09:42→21:24)
[2019-02-18] MEDS: AMIODARONE 200 MG TABLET PO SCH ×2 (09:43→21:23)
[2019-02-18] MEDS: METOPROLOL TARTRATE 25 MG TABLET PO SCH ×2 (09:43→21:23)
[2019-02-18] MEDS: predniSONE 20 MG TABLET PO SCH (09:43)
[2019-02-18] MEDS: CELECOXIB 100 MG CAPSULE PO SCH ×2 (09:43→21:24)
[2019-02-18] MEDS: DOCUSATE SODIUM 100 MG CAPSULE PO SCH ×2 (09:44→21:23)
[2019-02-18] MEDS: GABAPENTIN 50 MG/ML 30 ML/BOTTLE PO SCH ×4 (09:44→21:23)
[2019-02-18] MEDS: MEROPENEM 500 MG in SODIUM CHLORIDE 0.9% 100 ML IV SCH ×2 (11:16→23:22)
[2019-02-18] MEDS: ZINC OXIDE PASTE 113 GM TUBE TOP SCH ×2 (12:00→21:22)
[2019-02-18] MEDS: fentaNYL INJ 1,250 MCG in SODIUM CHLORIDE 0.9% 225 ML IV PRN (14:05)
[2019-02-18] MEDS: SIMVASTATIN 20 MG TABLET PO SCH (21:23)
[2019-02-18] MEDS: ASPIRIN EC 325 MG TABLET PO SCH (21:24)
[2019-02-19] MEDS: INSULIN REGULAR 100 UNIT/ML SUBCUT SCH ×4 (01:02→17:06)
[2019-02-19] MEDS: PROPOFOL 1,000 MG/100 ML BOTTLE IV SCH ×3 (01:03→14:14)
[2019-02-19] MEDS: VANCOMYCIN INJ 1,250 MG in SODIUM CHLORIDE 0.9% 250 ML IV SCH ×3 (01:05→17:07)
[2019-02-19] MEDS: PIPERACILLIN/TAZOBACTAM 3,375 MG in SODIUM CHLORIDE 0.9% 100 ML IV SCH ×3 (02:18→17:18)
[2019-02-19 04:15] LABS: ABG Base Excess 4.9 MMOL/L (-2.5-2.5); ABG HCO3 28.7 MMOL/L (20-26); ABG Oxygen Saturation 89.8 % (95-100); ABG PH 7.402 (7.35-7.45); ABG PO2 56.9 MM HG (80-95)
[2019-02-19 04:23] LABS: Basophils # 0.1 10*3/uL (0.0-0.2); Basophils % 0.3 % (0.0-0.8); Hematocrit 29.5 VOL% (42.0-52.0); Hemoglobin 8.7 GM/DL (14.0-18.0); Immature Granulocytes % 3.5 %; Immature Granulocytes Absolute 1.06 #; Lymphocytes # 1.1 10*3/uL (1.4-4.0); Lymphocytes % 3.7 % (21.2-54.2); Mean Corpuscular HGB Conc 29.5 GM/DL (32-36); Mean Corpuscular Volume 84.3 FL (87-102); Mean Platelet Volume 10.5 FL (9.6-12.0); Monocytes % 6.8 % (1.7-12.7); NRBC # 0.02 10*3/uL; Neutrophils % 85.7 % (38.7-73.9); Platelet Count 204 T/CUMM (130-400); Red Cell Distribution Width 18.7 % (9.3-17.3); White Blood Count 30.4 T/CUMM (4-12)
[2019-02-19 04:45] LABS: Lymphocytes 3 % (20-55); Segmented Neutrophils 92 % (50-85); Total Cells Counted 100
[2019-02-19 04:46] LABS: Anisocytosis 1+; Platelet Estimate Adequate
[2019-02-19 04:47] LABS: Calcium 8.3 MG/DL (8.5-10.1); Osmolality,Calculated 289.1 MOS/KG (273-304)
[2019-02-19] MEDS: LEVOTHYROXINE 25 MCG TABLET PO SCH (06:21)
[2019-02-19] MEDS: ALBUTEROL/IPRATROPIUM 3 ML NEB RESP TX SCH ×4 (07:21→19:56)
[2019-02-19] MEDS: CELECOXIB 100 MG CAPSULE PO SCH ×2 (09:23→20:42)
[2019-02-19] MEDS: GABAPENTIN 50 MG/ML 30 ML/BOTTLE PO SCH ×4 (09:24→23:30)
[2019-02-19] MEDS: AMIODARONE 200 MG TABLET PO SCH ×2 (09:24→20:42)
[2019-02-19] MEDS: DOCUSATE SODIUM 100 MG CAPSULE PO SCH ×2 (09:24→20:43)
[2019-02-19] MEDS: LANSOPRAZOLE ODT 30 MG TABLET PER TUBE SCH ×2 (09:24→20:42)
[2019-02-19] MEDS: ZINC OXIDE PASTE 113 GM TUBE TOP SCH ×2 (09:24→23:30)
[2019-02-19] MEDS: METOPROLOL TARTRATE 25 MG TABLET PO SCH ×2 (09:24→20:42)
[2019-02-19] MEDS: predniSONE 20 MG TABLET PO SCH (09:24)
[2019-02-19] MEDS: MEROPENEM 500 MG in SODIUM CHLORIDE 0.9% 100 ML IV SCH (10:35)
[2019-02-19] MEDS: fentaNYL INJ 1,250 MCG in SODIUM CHLORIDE 0.9% 225 ML IV PRN (14:18)
[2019-02-19] MEDS: NOREPINEPHRINE 8 MG in SODIUM CHLORIDE 0.9% 242 ML IV PRN (18:22)
[2019-02-19] MEDS: SIMVASTATIN 20 MG TABLET PO SCH (20:43)
[2019-02-19] MEDS: ASPIRIN EC 325 MG TABLET PO SCH (20:43)
[2019-02-20] MEDS: INSULIN REGULAR 100 UNIT/ML SUBCUT SCH ×4 (00:12→19:00)
[2019-02-20] MEDS: MEROPENEM 500 MG in SODIUM CHLORIDE 0.9% 100 ML IV SCH (00:12)
[2019-02-20] MEDS: fentaNYL INJ 1,250 MCG in SODIUM CHLORIDE 0.9% 225 ML IV PRN ×2 (02:39→13:31)
[2019-02-20] MEDS: PIPERACILLIN/TAZOBACTAM 3,375 MG in SODIUM CHLORIDE 0.9% 100 ML IV SCH (02:57)
[2019-02-20] MEDS: PROPOFOL 1,000 MG/100 ML BOTTLE IV SCH ×3 (02:58→17:33)
[2019-02-20 04:33] LABS: ABG Base Excess 6.5 MMOL/L (-2.5-2.5); ABG HCO3 31.9 MMOL/L (20-26); ABG Oxygen Saturation 97.2 % (95-100); ABG PCO2 49.7 MM HG (35-48); ABG PH 7.425 (7.35-7.45); ABG PO2 92.2 MM HG (80-95); ABG TCO2 33.4 MMOL/L (23-27)
[2019-02-20 05:05] LABS: Basophils # 0.1 10*3/uL (0.0-0.2); Basophils % 0.2 % (0.0-0.8); Eosinophils % 0.1 % (0.00-10.9); Hematocrit 28.9 VOL% (42.0-52.0); Hemoglobin 8.7 GM/DL (14.0-18.0); Immature Granulocytes % 1.9 %; Immature Granulocytes Absolute 0.43 #; Lymphocytes # 1.2 10*3/uL (1.4-4.0); Lymphocytes % 5.2 % (21.2-54.2); Mean Corpuscular HGB Conc 30.1 GM/DL (32-36); Mean Corpuscular Volume 84.8 FL (87-102); Monocytes % 7.5 % (1.7-12.7); NRBC # 0.04 10*3/uL; Neutrophils % 85.1 % (38.7-73.9); Platelet Count 210 T/CUMM (130-400); Red Blood Count 3.41 MC/CUMM (3.8-5.5); Red Cell Distribution Width 19.1 % (9.3-17.3)
[2019-02-20 05:15] LABS: Calcium 8.4 MG/DL (8.5-10.1); Osmolality,Calculated 294.7 MOS/KG (273-304)
[2019-02-20 05:55] LABS: Lymphocytes 1 % (20-55); Segmented Neutrophils 94 % (50-85); Total Cells Counted 100
[2019-02-20 05:56] LABS: Anisocytosis Slight; Microcytosis 1+
[2019-02-20 05:57] LABS: Hypochromasia Slight; Platelet Estimate Normal
[2019-02-20] MEDS: LEVOTHYROXINE 25 MCG TABLET PO SCH (06:18)
[2019-02-20] MEDS: VANCOMYCIN INJ 1,250 MG in SODIUM CHLORIDE 0.9% 250 ML IV SCH ×2 (06:18→17:42)
[2019-02-20] MEDS: ALBUTEROL/IPRATROPIUM 3 ML NEB RESP TX SCH ×4 (07:11→19:23)
[2019-02-20] MEDS: SODIUM CHLORIDE 0.9% IV SCH ×2 (09:22→17:42)
[2019-02-20] MEDS: CEFTAZIDIME IV SCH ×2 (09:22→17:42)
[2019-02-20] MEDS: AVIBACTAM IV SCH ×2 (09:22→17:42)
[2019-02-20] MEDS: METOPROLOL TARTRATE 25 MG TABLET PO SCH ×2 (09:23→21:01)
[2019-02-20] MEDS: AMIODARONE 200 MG TABLET PO SCH ×2 (09:24→21:01)
[2019-02-20] MEDS: GABAPENTIN 50 MG/ML 30 ML/BOTTLE PO SCH ×4 (09:24→21:02)
[2019-02-20] MEDS: DOCUSATE SODIUM 100 MG CAPSULE PO SCH ×2 (09:24→21:01)
[2019-02-20] MEDS: ZINC OXIDE PASTE 113 GM TUBE TOP SCH ×2 (09:24→21:02)
[2019-02-20] MEDS: predniSONE 20 MG TABLET PO SCH (09:24)
[2019-02-20] MEDS: LANSOPRAZOLE ODT 30 MG TABLET PER TUBE SCH ×2 (09:24→21:01)
[2019-02-20] MEDS: CELECOXIB 100 MG CAPSULE PO SCH ×2 (09:24→21:01)
[2019-02-20] MEDS: POTASSIUM CHLORIDE RIDER 20 MEQ in PREMIX 1 EACH IV PRN (10:30)
[2019-02-20] MEDS: DORNASE ALFA 2.5 MG/2.5 ML VIAL RESP TX SCH ×2 (10:49→19:23)
[2019-02-20] MEDS: POTASSIUM CHLORIDE RIDER 10 MEQ in PREMIX 1 EACH IV PRN (12:28)
[2019-02-20] MEDS: SIMVASTATIN 20 MG TABLET PO SCH (20:57)
[2019-02-20] MEDS: ASPIRIN EC 325 MG TABLET PO SCH (21:01)
[2019-02-20] MEDS: CLORAZEPATE 3.75 MG TABLET PO PRN (21:05)
[2019-02-21] MEDS: fentaNYL INJ 1,250 MCG in SODIUM CHLORIDE 0.9% 225 ML IV PRN ×3 (00:03→22:10)
[2019-02-21] MEDS: INSULIN REGULAR 100 UNIT/ML SUBCUT SCH ×4 (00:14→18:14)
[2019-02-21] MEDS: SODIUM CHLORIDE 0.9% IV SCH ×3 (01:09→17:24)
[2019-02-21] MEDS: AVIBACTAM IV SCH ×3 (01:09→17:24)
[2019-02-21] MEDS: CEFTAZIDIME IV SCH ×3 (01:09→17:24)
[2019-02-21 04:50] LABS: ABG Base Excess 7.2 MMOL/L (-2.5-2.5); ABG Oxygen Saturation 96.6 % (95-100); ABG PCO2 53.1 MM HG (35-48); ABG PH 7.404 (7.35-7.45); ABG PO2 84.9 MM HG (80-95); ABG TCO2 30.5 MMOL/L (23-27)
[2019-02-21 04:56] LABS: Basophils % 0.2 % (0.0-0.8); Hematocrit 30.2 VOL% (42.0-52.0); Immature Granulocytes % 1.6 %; Immature Granulocytes Absolute 0.39 #; Lymphocytes # 1.2 10*3/uL (1.4-4.0); Lymphocytes % 4.8 % (21.2-54.2); Mean Corpuscular HGB Conc 29.8 GM/DL (32-36); Mean Corpuscular Volume 85.3 FL (87-102); Monocytes % 7.6 % (1.7-12.7); NRBC # 0.04 10*3/uL; Neutrophils % 85.8 % (38.7-73.9); Platelet Count 213 T/CUMM (130-400); Red Blood Count 3.54 MC/CUMM (3.8-5.5); Red Cell Distribution Width 19.6 % (9.3-17.3)
[2019-02-21 05:07] LABS: Partial Thromboplastin Time 24.7 SECS (0-40)
[2019-02-21 05:22] LABS: Calcium 9.2 MG/DL (8.5-10.1); Osmolality,Calculated 295.7 MOS/KG (273-304)
[2019-02-21 06:01] LABS: Anisocytosis 1+; Lymphocytes 5 % (20-55); Platelet Estimate Adequate; Segmented Neutrophils 87 % (50-85); Total Cells Counted 100
[2019-02-21 06:02] LABS: Hypochromasia 1+
[2019-02-21] MEDS: VANCOMYCIN INJ 1,250 MG in SODIUM CHLORIDE 0.9% 250 ML IV SCH ×2 (06:20→17:24)
[2019-02-21] MEDS: LEVOTHYROXINE 25 MCG TABLET PO SCH (06:21)
[2019-02-21] MEDS: POTASSIUM CHLORIDE RIDER 20 MEQ in PREMIX 1 EACH IV PRN (06:25)
[2019-02-21] MEDS: ALBUTEROL/IPRATROPIUM 3 ML NEB RESP TX SCH ×4 (07:25→21:05)
[2019-02-21] MEDS: DORNASE ALFA 2.5 MG/2.5 ML VIAL RESP TX SCH ×2 (07:25→21:05)
[2019-02-21] MEDS: POTASSIUM CHLORIDE RIDER 10 MEQ in PREMIX 1 EACH IV PRN (08:12)
[2019-02-21] MEDS: DOCUSATE SODIUM 100 MG CAPSULE PO SCH ×2 (08:50→21:38)
[2019-02-21] MEDS: AMIODARONE 200 MG TABLET PO SCH ×2 (08:50→21:38)
[2019-02-21] MEDS: ZINC OXIDE PASTE 113 GM TUBE TOP SCH ×2 (08:50→21:38)
[2019-02-21] MEDS: CELECOXIB 100 MG CAPSULE PO SCH ×2 (08:50→21:38)
[2019-02-21] MEDS: predniSONE 20 MG TABLET PO SCH (08:51)
[2019-02-21] MEDS: GABAPENTIN 50 MG/ML 30 ML/BOTTLE PO SCH ×4 (08:51→21:39)
[2019-02-21] MEDS: METOPROLOL TARTRATE 25 MG TABLET PO SCH ×2 (08:51→21:39)
[2019-02-21] MEDS: LANSOPRAZOLE ODT 30 MG TABLET PER TUBE SCH ×2 (08:51→21:39)
[2019-02-21] MEDS: PROPOFOL 1,000 MG/100 ML BOTTLE IV SCH ×3 (10:43→22:48)
[2019-02-21] MEDS: NOREPINEPHRINE 8 MG in SODIUM CHLORIDE 0.9% 242 ML IV PRN (10:48)
[2019-02-21] MEDS: ASPIRIN EC 325 MG TABLET PO SCH (21:38)
[2019-02-21] MEDS: SIMVASTATIN 20 MG TABLET PO SCH (21:39)
[2019-02-21] MEDS: CLORAZEPATE 3.75 MG TABLET PO PRN (21:39)
[2019-02-22] MEDS: INSULIN REGULAR 100 UNIT/ML SUBCUT SCH ×4 (00:37→18:30)
[2019-02-22] MEDS: AVIBACTAM IV SCH ×3 (00:39→18:18)
[2019-02-22] MEDS: SODIUM CHLORIDE 0.9% IV SCH ×3 (00:39→18:18)
[2019-02-22] MEDS: CEFTAZIDIME IV SCH ×3 (00:39→18:18)
[2019-02-22 04:23] LABS: ABG Base Excess 9.8 MMOL/L (-2.5-2.5); ABG HCO3 35.7 MMOL/L (20-26); ABG Oxygen Saturation 95.7 % (95-100); ABG PCO2 56.1 MM HG (35-48); ABG PH 7.422 (7.35-7.45); ABG PO2 84.5 MM HG (80-95); ABG TCO2 37.5 MMOL/L (23-27)
[2019-02-22 04:35] LABS: Basophils # 0.1 10*3/uL (0.0-0.2); Basophils % 0.3 % (0.0-0.8); Hematocrit 30.4 VOL% (42.0-52.0); Hemoglobin 9.1 GM/DL (14.0-18.0); Immature Granulocytes % 3.4 %; Immature Granulocytes Absolute 0.96 #; Lymphocytes # 1.1 10*3/uL (1.4-4.0); Mean Corpuscular HGB Conc 29.9 GM/DL (32-36); Mean Corpuscular Volume 85.2 FL (87-102); Mean Platelet Volume 11.4 FL (9.6-12.0); Monocytes % 7.7 % (1.7-12.7); NRBC # 0.06 10*3/uL; Neutrophils % 84.6 % (38.7-73.9); Platelet Count 235 T/CUMM (130-400); Red Blood Count 3.57 MC/CUMM (3.8-5.5); Red Cell Distribution Width 19.8 % (9.3-17.3); White Blood Count 28.1 T/CUMM (4-12)
[2019-02-22 04:52] LABS: Osmolality,Calculated 296.4 MOS/KG (273-304)
[2019-02-22 04:53] LABS: INR 1.1; PT Patient Result 11.4 SECS; Partial Thromboplastin Time 24.6 SECS (0-40)
[2019-02-22 05:27] LABS: Band Neutrophils 4 % (0-10); Lymphocytes 8 % (20-55); Myelocytes 1 %; Segmented Neutrophils 83 % (50-85); Total Cells Counted 100
[2019-02-22 05:28] LABS: Anisocytosis 1+; Hypochromasia 1+; Platelet Estimate Adequate; Target Cells 1+
[2019-02-22] MEDS: VANCOMYCIN INJ 1,250 MG in SODIUM CHLORIDE 0.9% 250 ML IV SCH ×2 (06:22→18:42)
[2019-02-22] MEDS: LEVOTHYROXINE 25 MCG TABLET PO SCH (06:55)
[2019-02-22] MEDS: ALBUTEROL/IPRATROPIUM 3 ML NEB RESP TX SCH ×4 (07:00→19:24)
[2019-02-22] MEDS: DORNASE ALFA 2.5 MG/2.5 ML VIAL RESP TX SCH ×2 (07:08→19:24)
[2019-02-22] MEDS: predniSONE 20 MG TABLET PO SCH (09:27)
[2019-02-22] MEDS: CELECOXIB 100 MG CAPSULE PO SCH ×2 (09:27→21:31)
[2019-02-22] MEDS: AMIODARONE 200 MG TABLET PO SCH ×2 (09:27→21:32)
[2019-02-22] MEDS: METOPROLOL TARTRATE 25 MG TABLET PO SCH ×2 (09:27→21:30)
[2019-02-22] MEDS: ZINC OXIDE PASTE 113 GM TUBE TOP SCH ×2 (09:28→21:05)
[2019-02-22] MEDS: DOCUSATE SODIUM 100 MG CAPSULE PO SCH ×2 (09:28→21:31)
[2019-02-22] MEDS: LANSOPRAZOLE ODT 30 MG TABLET PER TUBE SCH ×2 (09:29→21:32)
[2019-02-22] MEDS: NOREPINEPHRINE 8 MG in SODIUM CHLORIDE 0.9% 242 ML IV PRN (09:50)
[2019-02-22] MEDS: fentaNYL INJ 1,250 MCG in SODIUM CHLORIDE 0.9% 225 ML IV PRN ×2 (09:50→20:02)
[2019-02-22] MEDS: GABAPENTIN 50 MG/ML 30 ML/BOTTLE PO SCH ×4 (10:30→21:32)
[2019-02-22] MEDS: PROPOFOL 1,000 MG/100 ML BOTTLE IV SCH ×2 (12:48→18:06)
[2019-02-22] MEDS: SIMVASTATIN 20 MG TABLET PO SCH (21:31)
[2019-02-22] MEDS: ASPIRIN EC 325 MG TABLET PO SCH (21:32)
[2019-02-23] MEDS: INSULIN REGULAR 100 UNIT/ML SUBCUT SCH ×4 (00:27→18:33)
[2019-02-23] MEDS: AVIBACTAM IV SCH ×3 (00:28→16:35)
[2019-02-23] MEDS: SODIUM CHLORIDE 0.9% IV SCH ×3 (00:28→16:35)
[2019-02-23] MEDS: CEFTAZIDIME IV SCH ×3 (00:28→16:35)
[2019-02-23 04:52] LABS: Basophils # 0.1 10*3/uL (0.0-0.2); Basophils % 0.2 % (0.0-0.8); Hematocrit 30.5 VOL% (42.0-52.0); Immature Granulocytes Absolute 0.92 #; Lymphocytes # 1.4 10*3/uL (1.4-4.0); Mean Corpuscular HGB Conc 29.5 GM/DL (32-36); Mean Corpuscular Volume 86.2 FL (87-102); Mean Platelet Volume 11.2 FL (9.6-12.0); Monocytes % 6.5 % (1.7-12.7); NRBC # 0.08 10*3/uL; Neutrophils % 83.3 % (38.7-73.9); Platelet Count 241 T/CUMM (130-400); Red Blood Count 3.54 MC/CUMM (3.8-5.5); Red Cell Distribution Width 20.2 % (9.3-17.3); White Blood Count 23.2 T/CUMM (4-12)
[2019-02-23 05:03] LABS: INR 1.1; Partial Thromboplastin Time 25.9 SECS (0-40)
[2019-02-23 05:06] LABS: Calcium 9.2 MG/DL (8.5-10.1); Osmolality,Calculated 307.7 MOS/KG (273-304)
[2019-02-23] MEDS: PROPOFOL 1,000 MG/100 ML BOTTLE IV SCH ×2 (05:06→18:31)
[2019-02-23 05:10] LABS: Prealbumin 7.5 MG/DL (20-40)
[2019-02-23 06:09] LABS: Band Neutrophils 1 % (0-10); Hypochromasia 1+; Lymphocytes 6 % (20-55); Platelet Estimate Adequate; Segmented Neutrophils 85 % (50-85); Total Cells Counted 100
[2019-02-23] MEDS: ALBUTEROL/IPRATROPIUM 3 ML NEB RESP TX SCH ×4 (06:50→19:49)
[2019-02-23] MEDS: DORNASE ALFA 2.5 MG/2.5 ML VIAL RESP TX SCH ×2 (06:55→19:50)
[2019-02-23] MEDS: NOREPINEPHRINE 8 MG in SODIUM CHLORIDE 0.9% 242 ML IV PRN (07:02)
[2019-02-23] MEDS: LEVOTHYROXINE 25 MCG TABLET PO SCH (07:03)
[2019-02-23] MEDS: VANCOMYCIN INJ 1,250 MG in SODIUM CHLORIDE 0.9% 250 ML IV SCH ×2 (07:03→18:33)
[2019-02-23] MEDS: fentaNYL INJ 1,250 MCG in SODIUM CHLORIDE 0.9% 225 ML IV PRN ×2 (08:13→20:15)
[2019-02-23] MEDS: CELECOXIB 100 MG CAPSULE PO SCH ×2 (08:47→21:36)
[2019-02-23] MEDS: LANSOPRAZOLE ODT 30 MG TABLET PER TUBE SCH ×2 (08:48→21:37)
[2019-02-23] MEDS: CLORAZEPATE 3.75 MG TABLET PO PRN (08:48)
[2019-02-23] MEDS: predniSONE 20 MG TABLET PO SCH (08:48)
[2019-02-23] MEDS: METOPROLOL TARTRATE 25 MG TABLET PO SCH ×2 (08:48→21:38)
[2019-02-23] MEDS: DOCUSATE SODIUM 100 MG CAPSULE PO SCH ×2 (08:48→21:37)
[2019-02-23] MEDS: AMIODARONE 200 MG TABLET PO SCH ×2 (08:48→21:37)
[2019-02-23] MEDS: ZINC OXIDE PASTE 113 GM TUBE TOP SCH ×2 (08:49→21:37)
[2019-02-23] MEDS: GABAPENTIN 50 MG/ML 30 ML/BOTTLE PO SCH ×4 (08:49→21:37)
[2019-02-23] MEDS: POTASSIUM CHLORIDE RIDER 10 MEQ in PREMIX 1 EACH IV PRN ×2 (08:50→13:36)
[2019-02-23 10:10] LABS: ABG Base Excess 10.5 MMOL/L (-2.5-2.5); ABG HCO3 35.7 MMOL/L (20-26); ABG Oxygen Saturation 96.8 % (95-100); ABG PCO2 52.2 MM HG (35-48); ABG PH 7.453 (7.35-7.45); ABG PO2 94.1 MM HG (80-95); ABG TCO2 37.3 MMOL/L (23-27); Allen Test Positive; Pt O2 Delivery Device Ventilator
[2019-02-23] MEDS: DEXTROSE 5% 1,000 ML IV SCH (10:55)
[2019-02-23] MEDS: SIMVASTATIN 20 MG TABLET PO SCH (21:36)
[2019-02-23] MEDS: ASPIRIN EC 325 MG TABLET PO SCH (21:37)
[2019-02-24] MEDS: INSULIN REGULAR 100 UNIT/ML SUBCUT SCH ×4 (00:31→18:28)
[2019-02-24] MEDS: AVIBACTAM IV SCH ×3 (02:24→16:30)
[2019-02-24] MEDS: SODIUM CHLORIDE 0.9% IV SCH ×3 (02:24→16:30)
[2019-02-24] MEDS: CEFTAZIDIME IV SCH ×3 (02:24→16:30)
[2019-02-24 05:33] LABS: INR 1.2; PT Patient Result 13.4 SECS; Partial Thromboplastin Time 25.9 SECS (0-40)
[2019-02-24] MEDS: DEXTROSE 5% 1,000 ML IV SCH (05:43)
[2019-02-24 05:44] LABS: Calcium 9.3 MG/DL (8.5-10.1); Osmolality,Calculated 299.4 MOS/KG (273-304)
[2019-02-24] MEDS: VANCOMYCIN INJ 1,250 MG in SODIUM CHLORIDE 0.9% 250 ML IV SCH (06:00)
[2019-02-24] MEDS: LEVOTHYROXINE 25 MCG TABLET PO SCH (06:16)
[2019-02-24 07:02] LABS: ABG Base Excess 9.1 MMOL/L (-2.5-2.5); ABG HCO3 32.9 MMOL/L (20-26); ABG Oxygen Saturation 96.4 % (95-100); ABG PCO2 46.6 MM HG (35-48); ABG PO2 79.6 MM HG (80-95); ABG TCO2 31.1 MMOL/L (23-27)
[2019-02-24 07:39] LABS: Basophils # 0.1 10*3/uL (0.0-0.2); Basophils % 0.2 % (0.0-0.8); Eosinophils # 0.1 10*3/uL (0.0-0.87); Eosinophils % 0.3 % (0.00-10.9); Hematocrit 33.2 VOL% (42.0-52.0); Hemoglobin 9.8 GM/DL (14.0-18.0); Immature Granulocytes % 3.3 %; Immature Granulocytes Absolute 0.88 #; Lymphocytes # 1.5 10*3/uL (1.4-4.0); Lymphocytes % 5.5 % (21.2-54.2); Mean Corpuscular HGB Conc 29.5 GM/DL (32-36); Mean Corpuscular Volume 84.9 FL (87-102); Mean Platelet Volume 11.8 FL (9.6-12.0); Monocytes % 5.7 % (1.7-12.7); NRBC # 0.04 10*3/uL; Platelet Count 279 T/CUMM (130-400); Red Blood Count 3.91 MC/CUMM (3.8-5.5); Red Cell Distribution Width 20.1 % (9.3-17.3); White Blood Count 26.6 T/CUMM (4-12)
[2019-02-24] MEDS: ALBUTEROL/IPRATROPIUM 3 ML NEB RESP TX SCH ×5 (07:44→18:56)
[2019-02-24 07:54] LABS: Anisocytosis 1+; Band Neutrophils 16 % (0-10); Lymphocytes 7 % (20-55); Nucleated Red Blood Cells 2 (0-5); Platelet Estimate Normal; Segmented Neutrophils 73 % (50-85); Total Cells Counted 100
[2019-02-24] MEDS: PROPOFOL 1,000 MG/100 ML BOTTLE IV SCH ×2 (08:00→17:00)
[2019-02-24] MEDS: fentaNYL INJ 1,250 MCG in SODIUM CHLORIDE 0.9% 225 ML IV PRN ×2 (08:00→17:00)
[2019-02-24] MEDS: DORNASE ALFA 2.5 MG/2.5 ML VIAL RESP TX SCH ×2 (08:02→19:03)
[2019-02-24] MEDS: AMIODARONE 200 MG TABLET PO SCH ×2 (09:34→22:02)
[2019-02-24] MEDS: METOPROLOL TARTRATE 25 MG TABLET PO SCH ×2 (09:34→22:02)
[2019-02-24] MEDS: CELECOXIB 100 MG CAPSULE PO SCH ×2 (09:34→22:02)
[2019-02-24] MEDS: GABAPENTIN 50 MG/ML 30 ML/BOTTLE PO SCH ×4 (09:34→22:02)
[2019-02-24] MEDS: ZINC OXIDE PASTE 113 GM TUBE TOP SCH ×2 (09:34→22:02)
[2019-02-24] MEDS: DOCUSATE SODIUM 100 MG CAPSULE PO SCH ×2 (09:34→22:01)
[2019-02-24] MEDS: predniSONE 20 MG TABLET PO SCH (09:34)
[2019-02-24] MEDS: LANSOPRAZOLE ODT 30 MG TABLET PER TUBE SCH ×2 (09:35→22:02)
[2019-02-24] MEDS: POTASSIUM CHLORIDE RIDER 10 MEQ in PREMIX 1 EACH IV PRN ×3 (09:35→11:52)
[2019-02-24 11:12] LABS: Albumin 1.3 G/DL (3.4-5.0); Bilirubin,Direct 0.23 MG/DL (0.0-0.20); Bilirubin,Indirect 0.6 MG/DL (0.0-1.0); Bilirubin,Total 0.8 MG/DL (0.2-1.0); Total Protein 6.1 G/DL (6.4-8.3)
[2019-02-24] MEDS: NOREPINEPHRINE 8 MG in SODIUM CHLORIDE 0.9% 242 ML IV PRN (11:48)
[2019-02-24] MEDS: SIMVASTATIN 20 MG TABLET PO SCH (22:01)
[2019-02-24] MEDS: ASPIRIN EC 325 MG TABLET PO SCH (22:01)
[2019-02-25] MEDS: INSULIN REGULAR 100 UNIT/ML SUBCUT SCH ×4 (00:41→18:00)
[2019-02-25] MEDS: VANCOMYCIN INJ 1,250 MG in SODIUM CHLORIDE 0.9% 250 ML IV SCH ×2 (01:29→18:20)
[2019-02-25] MEDS: DEXTROSE 5% 1,000 ML IV SCH ×4 (01:30→23:41)
[2019-02-25] MEDS: AVIBACTAM IV SCH ×3 (02:31→16:00)
[2019-02-25] MEDS: CEFTAZIDIME IV SCH ×3 (02:31→16:00)
[2019-02-25] MEDS: SODIUM CHLORIDE 0.9% IV SCH ×3 (02:31→16:00)
[2019-02-25] MEDS: PROPOFOL 1,000 MG/100 ML BOTTLE IV SCH ×3 (02:31→21:44)
[2019-02-25] MEDS: fentaNYL INJ 1,250 MCG in SODIUM CHLORIDE 0.9% 225 ML IV PRN ×2 (03:14→14:15)
[2019-02-25] MEDS: NOREPINEPHRINE 8 MG in SODIUM CHLORIDE 0.9% 242 ML IV PRN ×2 (04:21→23:17)
[2019-02-25 04:45] LABS: Basophils # 0.1 10*3/uL (0.0-0.2); Basophils % 0.2 % (0.0-0.8); Eosinophils # 0.1 10*3/uL (0.0-0.87); Eosinophils % 0.2 % (0.00-10.9); Hematocrit 30.7 VOL% (42.0-52.0); Hemoglobin 8.9 GM/DL (14.0-18.0); Immature Granulocytes % 2.7 %; Immature Granulocytes Absolute 0.69 #; Lymphocytes # 1.2 10*3/uL (1.4-4.0); Lymphocytes % 4.8 % (21.2-54.2); Mean Platelet Volume 11.9 FL (9.6-12.0); Monocytes % 5.1 % (1.7-12.7); NRBC # 0.05 10*3/uL; Platelet Count 325 T/CUMM (130-400); Red Blood Count 3.61 MC/CUMM (3.8-5.5); Red Cell Distribution Width 19.8 % (9.3-17.3); White Blood Count 25.3 T/CUMM (4-12)
[2019-02-25 05:21] LABS: Eosinophils 1 % (0-10); Lymphocytes 5 % (20-55); Segmented Neutrophils 89 % (50-85)
[2019-02-25 05:23] LABS: Hypochromasia 1+; Platelet Estimate Normal; Polychromasia Few; Total Cells Counted 100
[2019-02-25 05:27] LABS: Calcium 8.2 MG/DL (8.5-10.1); Osmolality,Calculated 292.8 MOS/KG (273-304)
[2019-02-25 06:09] LABS: ABG HCO3 31.8 MMOL/L (20-26); ABG Oxygen Saturation 96.6 % (95-100); ABG PH 7.433 (7.35-7.45); ABG PO2 85.3 MM HG (80-95)
[2019-02-25] MEDS: LEVOTHYROXINE 25 MCG TABLET PO SCH (06:45)
[2019-02-25] MEDS: DORNASE ALFA 2.5 MG/2.5 ML VIAL RESP TX SCH ×2 (06:59→18:44)
[2019-02-25] MEDS: ALBUTEROL/IPRATROPIUM 3 ML NEB RESP TX SCH ×4 (06:59→18:39)
[2019-02-25] MEDS: CELECOXIB 100 MG CAPSULE PO SCH ×2 (08:30→21:23)
[2019-02-25] MEDS: predniSONE 20 MG TABLET PO SCH (08:30)
[2019-02-25] MEDS: METOPROLOL TARTRATE 25 MG TABLET PO SCH ×2 (08:30→21:24)
[2019-02-25] MEDS: AMIODARONE 200 MG TABLET PO SCH ×2 (08:30→21:23)
[2019-02-25] MEDS: GABAPENTIN 50 MG/ML 30 ML/BOTTLE PO SCH ×4 (08:30→21:24)
[2019-02-25] MEDS: LANSOPRAZOLE ODT 30 MG TABLET PER TUBE SCH ×2 (08:30→21:24)
[2019-02-25] MEDS: DOCUSATE SODIUM 100 MG CAPSULE PO SCH ×2 (08:30→21:24)
[2019-02-25] MEDS: ZINC OXIDE PASTE 113 GM TUBE TOP SCH ×2 (11:30→21:24)
[2019-02-25] MEDS: ASPIRIN EC 325 MG TABLET PO SCH (21:23)
[2019-02-25] MEDS: SIMVASTATIN 20 MG TABLET PO SCH (21:23)
[2019-02-26] MEDS: INSULIN REGULAR 100 UNIT/ML SUBCUT SCH ×4 (00:05→18:26)
[2019-02-26] MEDS: fentaNYL INJ 1,250 MCG in SODIUM CHLORIDE 0.9% 225 ML IV PRN ×3 (01:44→23:33)
[2019-02-26 02:48] LABS: ABG Base Excess 7.6 MMOL/L (-2.5-2.5); ABG HCO3 31.3 MMOL/L (20-26); ABG Oxygen Saturation 90.8 % (95-100); ABG PCO2 42.6 MM HG (35-48); ABG PH 7.482 (7.35-7.45); ABG PO2 59.4 MM HG (80-95); ABG TCO2 29.1 MMOL/L (23-27)
[2019-02-26] MEDS: SODIUM CHLORIDE 0.9% IV SCH ×3 (02:55→17:35)
[2019-02-26] MEDS: AVIBACTAM IV SCH ×3 (02:55→17:35)
[2019-02-26] MEDS: CEFTAZIDIME IV SCH ×3 (02:55→17:35)
[2019-02-26] MEDS: PROPOFOL 1,000 MG/100 ML BOTTLE IV SCH ×2 (05:31→15:31)
[2019-02-26] MEDS: DEXTROSE 5% 1,000 ML IV SCH ×2 (05:31→23:10)
[2019-02-26 06:12] LABS: Basophils # 0.1 10*3/uL (0.0-0.2); Basophils % 0.2 % (0.0-0.8); Eosinophils % 0.1 % (0.00-10.9); Hematocrit 31.6 VOL% (42.0-52.0); Hemoglobin 9.4 GM/DL (14.0-18.0); Immature Granulocytes % 2.8 %; Lymphocytes # 1.7 10*3/uL (1.4-4.0); Lymphocytes % 4.8 % (21.2-54.2); Mean Corpuscular HGB Conc 29.7 GM/DL (32-36); Mean Corpuscular Volume 84.5 FL (87-102); Mean Platelet Volume 12.1 FL (9.6-12.0); Monocytes % 4.5 % (1.7-12.7); NRBC # 0.05 10*3/uL; Neutrophils % 87.6 % (38.7-73.9); Platelet Count 367 T/CUMM (130-400); Red Blood Count 3.74 MC/CUMM (3.8-5.5); Red Cell Distribution Width 19.6 % (9.3-17.3); White Blood Count 35.4 T/CUMM (4-12)
[2019-02-26 06:36] LABS: Calcium 8.6 MG/DL (8.5-10.1); Eosinophils 1 % (0-10); Hypochromasia 1+; Lymphocytes 7 % (20-55); Osmolality,Calculated 283.3 MOS/KG (273-304); Platelet Estimate Adequate; Segmented Neutrophils 88 % (50-85); Total Cells Counted 100
[2019-02-26] MEDS: LEVOTHYROXINE 25 MCG TABLET PO SCH (06:41)
[2019-02-26] MEDS: ALBUTEROL/IPRATROPIUM 3 ML NEB RESP TX SCH ×4 (07:42→19:45)
[2019-02-26] MEDS: DORNASE ALFA 2.5 MG/2.5 ML VIAL RESP TX SCH ×2 (07:42→19:52)
[2019-02-26] MEDS: CELECOXIB 100 MG CAPSULE PO SCH ×2 (09:26→21:30)
[2019-02-26] MEDS: DOCUSATE SODIUM 100 MG CAPSULE PO SCH ×2 (09:26→21:30)
[2019-02-26] MEDS: predniSONE 20 MG TABLET PO SCH (09:26)
[2019-02-26] MEDS: AMIODARONE 200 MG TABLET PO SCH ×2 (09:26→21:31)
[2019-02-26] MEDS: METOPROLOL TARTRATE 25 MG TABLET PO SCH ×2 (09:26→21:30)
[2019-02-26] MEDS: ZINC OXIDE PASTE 113 GM TUBE TOP SCH ×2 (09:26→21:31)
[2019-02-26] MEDS: GABAPENTIN 50 MG/ML 30 ML/BOTTLE PO SCH ×4 (09:27→21:31)
[2019-02-26] MEDS: NOREPINEPHRINE 8 MG in SODIUM CHLORIDE 0.9% 242 ML IV PRN ×2 (09:27→19:41)
[2019-02-26] MEDS: LANSOPRAZOLE ODT 30 MG TABLET PER TUBE SCH ×2 (09:27→21:31)
[2019-02-26] MEDS: VANCOMYCIN INJ 1,250 MG in SODIUM CHLORIDE 0.9% 250 ML IV SCH (12:08)
[2019-02-26] MEDS: METOCLOPRAMIDE 10 MG/2 ML VIAL IV SCH ×2 (13:15→22:30)
[2019-02-26] MEDS: POTASSIUM CHLORIDE RIDER 20 MEQ in PREMIX 1 EACH IV PRN (14:33)
[2019-02-26] MEDS: ASPIRIN EC 325 MG TABLET PO SCH (21:29)
[2019-02-26] MEDS: SIMVASTATIN 20 MG TABLET PO SCH (21:29)
[2019-02-27] MEDS: INSULIN REGULAR 100 UNIT/ML SUBCUT SCH ×4 (00:40→17:57)
[2019-02-27] MEDS: VANCOMYCIN INJ 1,250 MG in SODIUM CHLORIDE 0.9% 250 ML IV SCH ×2 (01:23→13:47)
[2019-02-27] MEDS: PROPOFOL 1,000 MG/100 ML BOTTLE IV SCH ×3 (01:24→17:00)
[2019-02-27] MEDS: SODIUM CHLORIDE 0.9% IV SCH ×3 (02:29→17:28)
[2019-02-27] MEDS: CEFTAZIDIME IV SCH ×3 (02:29→17:28)
[2019-02-27] MEDS: AVIBACTAM IV SCH ×3 (02:29→17:28)
[2019-02-27 04:27] LABS: ABG Base Excess 5.6 MMOL/L (-2.5-2.5); ABG HCO3 30.5 MMOL/L (20-26); ABG Oxygen Saturation 93.4 % (95-100); ABG PH 7.439 (7.35-7.45); ABG PO2 70.8 MM HG (80-95); ABG TCO2 31.9 MMOL/L (23-27)
[2019-02-27 04:46] LABS: Basophils # 0.1 10*3/uL (0.0-0.2); Basophils % 0.2 % (0.0-0.8); Eosinophils # 0.1 10*3/uL (0.0-0.87); Eosinophils % 0.3 % (0.00-10.9); Hematocrit 30.5 VOL% (42.0-52.0); Hemoglobin 9.2 GM/DL (14.0-18.0); Immature Granulocytes % 3.1 %; Immature Granulocytes Absolute 1.19 #; Lymphocytes # 1.9 10*3/uL (1.4-4.0); Lymphocytes % 4.9 % (21.2-54.2); Mean Corpuscular HGB Conc 30.2 GM/DL (32-36); Mean Corpuscular Volume 83.8 FL (87-102); Mean Platelet Volume 12.1 FL (9.6-12.0); Monocytes % 4.6 % (1.7-12.7); NRBC # 0.02 10*3/uL; Neutrophils % 86.9 % (38.7-73.9); Platelet Count 389 T/CUMM (130-400); Red Blood Count 3.64 MC/CUMM (3.8-5.5); White Blood Count 37.8 T/CUMM (4-12)
[2019-02-27 04:50] LABS: INR 1.1; PT Patient Result 11.7 SECS; Partial Thromboplastin Time 26.1 SECS (0-40)
[2019-02-27 05:23] LABS: Band Neutrophils 2 % (0-10); Lymphocytes 3 % (20-55); Platelet Estimate Normal; Segmented Neutrophils 91 % (50-85); Total Cells Counted 100
[2019-02-27] MEDS: METOCLOPRAMIDE 10 MG/2 ML VIAL IV SCH ×3 (06:20→20:28)
[2019-02-27] MEDS: NOREPINEPHRINE 8 MG in SODIUM CHLORIDE 0.9% 242 ML IV PRN ×2 (06:23→21:51)
[2019-02-27] MEDS: LEVOTHYROXINE 25 MCG TABLET PO SCH (06:52)
[2019-02-27] MEDS: ALBUTEROL/IPRATROPIUM 3 ML NEB RESP TX SCH ×4 (07:46→19:33)
[2019-02-27] MEDS: DORNASE ALFA 2.5 MG/2.5 ML VIAL RESP TX SCH ×2 (07:52→19:40)
[2019-02-27] MEDS: CELECOXIB 100 MG CAPSULE PO SCH ×2 (10:10→20:23)
[2019-02-27] MEDS: AMIODARONE 200 MG TABLET PO SCH ×2 (10:10→20:24)
[2019-02-27] MEDS: DOCUSATE SODIUM 100 MG CAPSULE PO SCH ×2 (10:10→20:23)
[2019-02-27] MEDS: ZINC OXIDE PASTE 113 GM TUBE TOP SCH ×2 (10:10→20:30)
[2019-02-27] MEDS: LANSOPRAZOLE ODT 30 MG TABLET PER TUBE SCH ×2 (10:11→20:24)
[2019-02-27] MEDS: METOPROLOL TARTRATE 25 MG TABLET PO SCH ×2 (10:11→20:23)
[2019-02-27] MEDS: predniSONE 20 MG TABLET PO SCH (10:11)
[2019-02-27] MEDS: GABAPENTIN 50 MG/ML 30 ML/BOTTLE PO SCH ×4 (10:55→20:24)
[2019-02-27] MEDS: POTASSIUM CHLORIDE RIDER 10 MEQ in PREMIX 1 EACH IV PRN ×2 (10:58→12:07)
[2019-02-27] MEDS: fentaNYL INJ 1,250 MCG in SODIUM CHLORIDE 0.9% 225 ML IV PRN ×2 (11:00→22:30)
[2019-02-27] MEDS: POTASSIUM CHLORIDE RIDER 20 MEQ in PREMIX 1 EACH IV PRN (11:46)
[2019-02-27] MEDS: DEXTROSE 5% 1,000 ML IV SCH (13:49)
[2019-02-27] MEDS: SIMVASTATIN 20 MG TABLET PO SCH (20:23)
[2019-02-27] MEDS: ASPIRIN EC 325 MG TABLET PO SCH (20:23)
[2019-02-28] MEDS: VANCOMYCIN INJ 1,250 MG in SODIUM CHLORIDE 0.9% 250 ML IV SCH ×3 (00:04→23:10)
[2019-02-28] MEDS: INSULIN REGULAR 100 UNIT/ML SUBCUT SCH ×4 (00:04→17:32)
[2019-02-28] MEDS: PROPOFOL 1,000 MG/100 ML BOTTLE IV SCH ×3 (01:15→17:00)
[2019-02-28] MEDS: SODIUM CHLORIDE 0.9% IV SCH ×3 (02:30→16:24)
[2019-02-28] MEDS: AVIBACTAM IV SCH ×3 (02:30→16:24)
[2019-02-28] MEDS: CEFTAZIDIME IV SCH ×3 (02:30→16:24)
[2019-02-28] MEDS ORDERED: HEPARIN/NACL 0.9% 2 UNITS/ML 500 ML IV ONE (04:57)
[2019-02-28 05:04] LABS: ABG Base Excess 3.9 MMOL/L (-2.5-2.5); ABG HCO3 29.1 MMOL/L (20-26); ABG Oxygen Saturation 96.2 % (95-100); ABG PO2 87.3 MM HG (80-95); ABG TCO2 30.6 MMOL/L (23-27)
[2019-02-28] MEDS: DEXTROSE 5% 1,000 ML IV SCH ×2 (05:46→08:47)
[2019-02-28] MEDS: METOCLOPRAMIDE 10 MG/2 ML VIAL IV SCH ×3 (05:58→20:35)
[2019-02-28] MEDS: LEVOTHYROXINE 25 MCG TABLET PO SCH (06:00)
[2019-02-28 06:54] VITALS: BP 132/63
[2019-02-28] MEDS: NOREPINEPHRINE 8 MG in SODIUM CHLORIDE 0.9% 242 ML IV PRN ×2 (07:15→16:25)
[2019-02-28] MEDS: ALBUTEROL/IPRATROPIUM 3 ML NEB RESP TX SCH ×4 (07:15→19:35)
[2019-02-28] MEDS: DORNASE ALFA 2.5 MG/2.5 ML VIAL RESP TX SCH ×2 (07:25→19:40)
[2019-02-28] MEDS: fentaNYL INJ 1,250 MCG in SODIUM CHLORIDE 0.9% 225 ML IV PRN ×2 (08:45→17:00)
[2019-02-28] MEDS: GABAPENTIN 50 MG/ML 30 ML/BOTTLE PO SCH ×4 (08:46→20:35)
[2019-02-28] MEDS: ZINC OXIDE PASTE 113 GM TUBE TOP SCH ×2 (08:46→23:01)
[2019-02-28] MEDS: predniSONE 20 MG TABLET PO SCH (08:46)
[2019-02-28] MEDS: AMIODARONE 200 MG TABLET PO SCH ×2 (08:46→20:33)
[2019-02-28] MEDS: METOPROLOL TARTRATE 25 MG TABLET PO SCH ×2 (08:46→20:34)
[2019-02-28] MEDS: DOCUSATE SODIUM 100 MG CAPSULE PO SCH ×2 (08:46→20:33)
[2019-02-28] MEDS: LANSOPRAZOLE ODT 30 MG TABLET PER TUBE SCH ×2 (08:46→20:35)
[2019-02-28] MEDS: CELECOXIB 100 MG CAPSULE PO SCH ×2 (08:47→20:32)
[2019-02-28] MEDS: ASPIRIN EC 325 MG TABLET PO SCH (20:33)
[2019-02-28] MEDS: SIMVASTATIN 20 MG TABLET PO SCH (20:33)
[2019-03-01] MEDS: DEXTROSE 5% 1,000 ML IV SCH ×2 (00:23→15:02)
[2019-03-01] MEDS: SODIUM CHLORIDE 0.9% IV SCH ×3 (00:29→17:22)
[2019-03-01] MEDS: CEFTAZIDIME IV SCH ×3 (00:29→17:22)
[2019-03-01] MEDS: AVIBACTAM IV SCH ×3 (00:29→17:22)
[2019-03-01] MEDS: INSULIN REGULAR 100 UNIT/ML SUBCUT SCH ×4 (00:29→18:24)
[2019-03-01] MEDS: PROPOFOL 1,000 MG/100 ML BOTTLE IV SCH ×3 (02:15→18:38)
[2019-03-01] MEDS: NOREPINEPHRINE 8 MG in SODIUM CHLORIDE 0.9% 242 ML IV PRN ×2 (04:05→14:24)
[2019-03-01] MEDS: fentaNYL INJ 1,250 MCG in SODIUM CHLORIDE 0.9% 225 ML IV PRN ×2 (04:07→16:07)
[2019-03-01 04:14] LABS: ABG Base Excess 0.8 MMOL/L (-2.5-2.5); ABG HCO3 25.1 MMOL/L (20-26); ABG Oxygen Saturation 95.8 % (95-100); ABG PCO2 41.2 MM HG (35-48); ABG PH 7.401 (7.35-7.45); ABG PO2 78.2 MM HG (80-95); ABG TCO2 23.5 MMOL/L (23-27)
[2019-03-01] MEDS: METOCLOPRAMIDE 10 MG/2 ML VIAL IV SCH ×3 (05:32→21:16)
[2019-03-01] MEDS: LEVOTHYROXINE 25 MCG TABLET PO SCH (05:33)
[2019-03-01] MEDS: ALBUTEROL/IPRATROPIUM 3 ML NEB RESP TX SCH ×4 (07:47→18:58)
[2019-03-01] MEDS: DORNASE ALFA 2.5 MG/2.5 ML VIAL RESP TX SCH ×2 (07:47→19:06)
[2019-03-01] MEDS: DOCUSATE SODIUM 100 MG CAPSULE PO SCH ×2 (09:30→21:15)
[2019-03-01] MEDS: predniSONE 20 MG TABLET PO SCH (09:30)
[2019-03-01] MEDS: CELECOXIB 100 MG CAPSULE PO SCH ×2 (09:30→21:15)
[2019-03-01] MEDS: METOPROLOL TARTRATE 25 MG TABLET PO SCH ×2 (09:30→21:15)
[2019-03-01] MEDS: AMIODARONE 200 MG TABLET PO SCH ×2 (09:30→21:15)
[2019-03-01] MEDS: GABAPENTIN 50 MG/ML 30 ML/BOTTLE PO SCH ×4 (09:31→21:15)
[2019-03-01] MEDS: LANSOPRAZOLE ODT 30 MG TABLET PER TUBE SCH ×2 (09:31→21:15)
[2019-03-01] MEDS: ZINC OXIDE PASTE 113 GM TUBE TOP SCH ×2 (09:52→21:15)
[2019-03-01] MEDS: VANCOMYCIN INJ 1,250 MG in SODIUM CHLORIDE 0.9% 250 ML IV SCH (16:10)
[2019-03-01] MEDS: SIMVASTATIN 20 MG TABLET PO SCH (21:15)
[2019-03-01] MEDS: ASPIRIN EC 325 MG TABLET PO SCH (21:15)
[2019-03-02] MEDS: NOREPINEPHRINE 8 MG in SODIUM CHLORIDE 0.9% 242 ML IV PRN ×2 (00:22→08:50)
[2019-03-02] MEDS: INSULIN REGULAR 100 UNIT/ML SUBCUT SCH ×3 (00:46→13:06)
[2019-03-02] MEDS: AVIBACTAM IV SCH ×2 (01:02→08:51)
[2019-03-02] MEDS: CEFTAZIDIME IV SCH ×2 (01:02→08:51)
[2019-03-02] MEDS: SODIUM CHLORIDE 0.9% IV SCH ×2 (01:02→08:51)
[2019-03-02] MEDS: PROPOFOL 1,000 MG/100 ML BOTTLE IV SCH ×2 (02:00→09:49)
[2019-03-02] MEDS: fentaNYL INJ 1,250 MCG in SODIUM CHLORIDE 0.9% 225 ML IV PRN (02:19)
[2019-03-02] MEDS: VANCOMYCIN INJ 1,250 MG in SODIUM CHLORIDE 0.9% 250 ML IV SCH (05:40)
[2019-03-02] MEDS: METOCLOPRAMIDE 10 MG/2 ML VIAL IV SCH (05:44)
[2019-03-02 05:50] LABS: Basophils # 0.1 10*3/uL (0.0-0.2); Basophils % 0.3 % (0.0-0.8); Eosinophils # 0.1 10*3/uL (0.0-0.87); Eosinophils % 0.3 % (0.00-10.9); Hemoglobin 8.4 GM/DL (14.0-18.0); Immature Granulocytes % 4.7 %; Immature Granulocytes Absolute 1.64 #; Lymphocytes # 1.6 10*3/uL (1.4-4.0); Lymphocytes % 4.7 % (21.2-54.2); Mean Corpuscular Volume 85.1 FL (87-102); Mean Platelet Volume 11.8 FL (9.6-12.0); Platelet Count 416 T/CUMM (130-400); Red Blood Count 3.29 MC/CUMM (3.8-5.5); Red Cell Distribution Width 18.6 % (9.3-17.3); White Blood Count 34.8 T/CUMM (4-12)
[2019-03-02 05:55] LABS: Albumin 1.3 G/DL (3.4-5.0); Bilirubin,Total 0.4 MG/DL (0.2-1.0); Calcium 8.7 MG/DL (8.5-10.1); Osmolality,Calculated 275.1 MOS/KG (273-304); Total Protein 5.2 G/DL (6.4-8.3)
[2019-03-02 05:56] LABS: Prealbumin 11.7 MG/DL (20-40)
[2019-03-02] MEDS: LEVOTHYROXINE 25 MCG TABLET PO SCH (06:00)
[2019-03-02 06:11] LABS: ABG Base Excess 3.6 MMOL/L (-2.5-2.5); ABG HCO3 29.3 MMOL/L (20-26); ABG Oxygen Saturation 93.8 % (95-100); ABG PCO2 50.3 MM HG (35-48); ABG PH 7.383 (7.35-7.45); ABG PO2 75.4 MM HG (80-95); ABG TCO2 30.8 MMOL/L (23-27)
[2019-03-02 06:41] LABS: Lymphocytes 3 % (20-55); Platelet Estimate Increased; Segmented Neutrophils 91 % (50-85); Total Cells Counted 100
[2019-03-02] MEDS: ALBUTEROL/IPRATROPIUM 3 ML NEB RESP TX SCH ×2 (07:40→11:42)
[2019-03-02] MEDS: DORNASE ALFA 2.5 MG/2.5 ML VIAL RESP TX SCH (07:50)
[2019-03-02] MEDS: LANSOPRAZOLE ODT 30 MG TABLET PER TUBE SCH (08:57)
[2019-03-02] MEDS: AMIODARONE 200 MG TABLET PO SCH (08:57)
[2019-03-02] MEDS: METOPROLOL TARTRATE 25 MG TABLET PO SCH (08:57)
[2019-03-02] MEDS: CELECOXIB 100 MG CAPSULE PO SCH (08:57)
[2019-03-02] MEDS: predniSONE 20 MG TABLET PO SCH (08:57)
[2019-03-02] MEDS: DOCUSATE SODIUM 100 MG CAPSULE PO SCH (08:58)
[2019-03-02] MEDS: GABAPENTIN 50 MG/ML 30 ML/BOTTLE PO SCH (08:58)
[2019-03-02] MEDS: MORPHINE 4 MG/1 ML VIAL IV PRN ×18 (11:23→23:14)
[2019-03-02] MEDS: DEXTROSE 5% 1,000 ML IV SCH (12:51)
[2019-03-02] MEDS: ZINC OXIDE PASTE 113 GM TUBE TOP SCH (13:05)
== END 2019-03-02 23:20 | disposition expired | DRG 166 ==
LOC: N.ED 12:35 → N.EDINP 17:25 → N.TELEN 17:47 → N.ICU 02-15 14:17